=== PATIENT | male | born 1960 | race Caucasian/White ===

== ENCOUNTER → 2016-10-30 | Outpatient (CLI) | payer OTHER ==
[~2016-10-30] VITALS: Ht 177.8 cm; Wt 93.0 kg
[~2016-10-30] MED LIST: ASPI325T8 PO; CARV3.122 PO; CHOL10002 PO; CLOP75TA PO; LOSA100T6 PO; OMEG500C3 PO; PANT40TA5 PO; REGADENOSON 0.4 MG/5 ML DISP.SYRIN. IV ONE; SIMV20TA3 PO
--- NOTE | 2016-10-30 12:35 | RAD ---
APPROVED REPORT Test Type: Pharmacological Stress Nurse/Tech: Andreea Yun R.N. Test Indications: chest pain, CAD Cardiac History: Hypertension, CA's, 4 stents Medications: See Electronic Medical Record Medical History: See Electronic Medical Record Resting ECG: NSR Resting Heart Rate: 60 bpm Resting Blood Pressure: 111/68mmHg Pretest Chest Pain: No chest pain Nurse/Tech Notes S1S2, lungs sound clear Consent: The procedure was explained to the patient in lay terms. Informed consent was witnessed. Moody eout was entered into [facility]. History and Stress Test performed by Andreea Yun R.N. Pharm. Details Pharmacologic stress testing was performed using 0.4mg per 5ml of regadenoson given intravenously ove r 7-10 seconds. Stress Symptoms Dyspnea, Headache POST EXERCISE Reason for Termination: Infusion complete Max HR: 91 bpm Max Blood Pressure: 118/65mmHg Blood Pressure response to exercise: Normal blood pressure response during stress. Chest Pain: No. Arrhythmia: No. ST Change: No. INTERPRETATION Stress EKG Conclusion: The resting EKG shows a sinus rhythm with slight nonspecific ST-T wave changes . The stress EKG shows no significant changes from baseline. No EKG evidence of stress-induced ischemia. Imaging Protocol IMAGE PROTOCOL: Rest Tc-99m/stress Tc-99m 1 day Rest: Stress: Viability: Radiopharm.Tc99m IhzqywpcvMx60p Sestamibi Dose12.2mCi 33.6mCi Duration 15min. 10min. Img Date 10/30/2016 10/30/2016 Inj-Img Hoqm52fho. 60min. Rest Admin Site:IV - Left AntecubitalAdministrator:MARIBEL Ortiz Stress Admin Site: IV - Left AntecubitalAdministrator: MARIBEL Ortiz STRESS DATA End Diast. Vol.112.0mlAv. Heart Rate75.0bpm End Syst. Vol.31.0mlCO Index BSA0.0L/min Myocardial Cwjn338.0gEject. Wzrxahyf23.0% Stress Rates Pk. Fill Rate3.26EDV/secLVtime Pk. Fill 236.28msec Pk. Empty Rate3.49ESV/secLVtime Pk. Lgblr477.02msec 1/3 Pk. Fill0.58EDV/sec Stress Scores Regional WT1.00Summed WT8.00 Regional WM0.00Summed WM0.00 LV Perfusion The stress scans show a mild defect in the inferior lateral wall. The rest scans show a slight defect in the inferior wall. Nuclear imaging shows a largely reversible defect consistent with reversible ischemia in the inferior lateral wall. Wall Motion Left ventricular systolic function is normal with an ejection fraction of greater than 70%. LV Perf. Quant 17 Seg. SSS15.00 17 Seg. SRS16.00 17 Seg. SDS2.00 Stress Defect Extent (% LAD)15.60Rest Defect Extent (% LAD)25.60Rev. Defect Extent (% LAD)0.00 Stress Defect Extent (% LCX) 56.30Rest Defect Extent (% LCX)53.80Rev. Defect Extent (% LCX)2.50 Stress Defect Extent (% RCA)20.00Rest Defect Extent (% RCA)20.00Rev. Defect Extent (% RCA)5.60 Stress Defect Extent (% ROSI)28.50Rest Defect Extent (% ROSI)31.50Rev. Defect Extent (% ROSI)2.40 Conclusion 1. No EKG evidence of stress-induced ischemia. 2. Nuclear imaging shows an area of largely reversible ischemia in the inferior lateral wall. 3. Normal left ventricular systolic function with an ejection fraction of greater than 70%. 4. Moderate to moderately high risk Lexiscan nuclear stress test.
== END | disposition home or self-care (01) ==
LOC: NM 08:43
PROVIDERS: ATTEND Internal Medicine Cardiovascular Disease
DX: I25.118 Atherosclerotic heart disease of native coronary artery with other forms of angina pectoris (principal); R06.02 Shortness of breath; R53.83 Other fatigue; R07.9 Chest pain, unspecified
CPT/HCPCS: 78452; 93017; 96374; 96375; 96376; A9500; J2785

== ENCOUNTER 2016-12-03 11:01 | Outpatient (CLI) | payer OTHER ==
[~2016-12-03] VITALS: Ht 177.8 cm; Wt 93.9 kg
[2016-12-03] VITALS (12 sets, daily range): BP systolic 115–139; BP diastolic 77–87
[~2016-12-03 11:01] MED LIST changes: -REGADENOSON 0.4 MG/5 ML DISP.SYRIN. IV ONE
[2016-12-03] MEDS ORDERED: EZET10TA18 PO (11:17)
[2016-12-03 11:44] LABS: CALCIUM 8.6 mg/dL (8.5-10.1); CREATININE 0.8 mg/dL (0.7-1.3); GFR 99.3; POTASSIUM 4.4 mmol/L (3.5-5.1)
[2016-12-03 11:47] LABS: HEMOGLOBIN 15.7 g/dL (13.0-17.5); RED BLOOD COUNT 5.03 x10^6/uL (4.30-5.70); RED CELL DISTRIBUTION WIDTH 14.5 % (11.5-14.5); WHITE BLOOD COUNT 5.6 x10^3/uL (4.0-11.0)
[2016-12-03 12:00] LABS: PROTHROMBIN TIME PATIENT 12.3 SEC (11.7-14.0)
[2016-12-03] MEDS ORDERED: IOHEXOL 300 MG/ML 100ML VIAL. ONE (12:44)
[2016-12-03] MEDS ORDERED: LIDOCAINE 2% 20 ML VIAL. ONE (12:45)
[2016-12-03] MEDS ORDERED: MIDAZOLAM HCL/PF 2 MG/2 ML VIAL. ONE (12:56)
[2016-12-03] MEDS ORDERED: fentaNYL PF VIAL 100 MCG/2 ML VIAL ONE (12:56)
[2016-12-03] MEDS ORDERED: LIDOCAINE 2% 20 ML VIAL. IJ ONE (13:15)
[2016-12-03] MEDS ORDERED: IOHEXOL 300 MG/ML 100ML VIAL. IART ONE (13:15)
[2016-12-03] MEDS ORDERED: fentaNYL PF VIAL 100 MCG/2 ML VIAL IV ONE (13:15)
[2016-12-03] MEDS ORDERED: MIDAZOLAM HCL/PF 2 MG/2 ML VIAL. IV ONE (13:15)
--- NOTE | 2016-12-03 16:14 | CARD ---
APPROVED REPORT Procedure(s) performed: LEFT HEART CATHERIZATION SEDATION TIME:[address]: coronary artery disease, tobacco history() , previous PCI (The PCI date was ), hypertens ion, dyslipidemia. INDICATION The indication(s) include : positive stress test, unstable angina , chest pain. CASE TECHNIQUE The patient was brought electively into the cardiac catheterization lab. A timeout was performed conf irming the patient's name, date of , procedure, and site of procedure. All necessary parties wer e wearing the appropriate personal protective equipment and radiation monitoring devices. After expla ining the risks and benefits of the procedure, informed consent was obtained.(See nursing notes for m edications administered). The right groin was sterilely prepped and draped. The right femoral groin w as infiltrated with 2% Lidocaine subcutaneous anesthesia. During this case, Fluoroscopy and low osmol ar contrast were used for imaging. A sheath was inserted into the right femoral artery without diffic ulty. Coronary angiography was performed using coronary diagnostic catheters. The left coronary syste m was accessed and visualized with a Diagnostic catheter. The right coronary system was accessed and visualized with a Diagnostic catheter. The left ventricle was accessed and visualized with a Diagnost ic catheter. Left ventricular/Aortic Valve gradient assessed on pullback. Left ventriculogram was per formed in RAYMOND projection. Pre-demployment femoral angiogram was performed . Closure device was deploy ed with a Angioseal without any complications. The patient tolerated the procedure well and there wer e no complications associated with the procedure. Coronary Angiography The patient's coronary anatomy is co-dominant. The left main coronary artery is a large size vessel free of disease. The left main trifurcates to th e left anterior descending, circumflex, and ramus. The left anterior descending artery is a large size vessel with intimal irregularities and without si gnificant stenosis the stent is open without restenosis. The first diagonal branch is a small size ve ssel free of disease. The second diagonal branch is a small size vessel free of disease. The third di agonal branch is a small size vessel free of disease. The circumflex artery is a medium size vessel with intimal irregularities and without significant milton nosis. The stent to the mid segment stent is open. The first obtuse marginal branch is a medium size vessel free of disease. The second obtuse marginal branch is a medium size vessel free of disease. Th e third obtuse marginal branch is a small size vessel free of disease. The right coronary artery is a small size vessel free of disease. The right posterior descending luis enrique ry is a small size vessel free of disease. The right posterolateral branch is a small size vessel wit h mild proximal stenosis in the 40-50% range.. Left Ventriculography The left ventricle is mildly dilated in size with below normal contractility. The left ventricular ej ection fraction is estimated to be 40%%. The left ventricular end diastolic pressure is 18 mmHg. Ther e was no gradient across the aortic valve upon pullback. Conclusion This patient with a history of coronary artery disease has stents present in the LAD and the circumfl ex that are open and there is no significant restenosis. Mild disease of the RCA. I would recommend m edical treatment for the patient. 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 Recommendations Medical Therapy
== END 2016-12-03 16:38 | disposition home or self-care (01) ==
LOC: CCL 11:01
PROVIDERS: ATTEND Internal Medicine Cardiovascular Disease
DX: I25.10 Atherosclerotic heart disease of native coronary artery without angina pectoris (principal); I10 Essential (primary) hypertension; E78.5 Hyperlipidemia, unspecified; I20.0 Unstable angina; E78.00 Pure hypercholesterolemia, unspecified; F17.200 Nicotine dependence, unspecified, uncomplicated; Z79.01 Long term (current) use of anticoagulants; Z90.49 Acquired absence of other specified parts of digestive tract; Z72.0 Tobacco use
CPT/HCPCS: 36415; 80048; 85027; 85610; 85730; 93458; 99152; 99153; C1769; C1771; C1887; C1892; J1644; J2001; J2250; J3010; Q9967; G0269

== ENCOUNTER → 2017-06-11 | Outpatient (CLI) | payer OTHER ==
[2017-06-11 09:06] LABS: ADD MAN DIFF? NO
[2017-06-11 09:17] LABS: BASO # 0.1 x10^3/uL (0.0-0.2); BASO % 1 % (0-3); EOS # 0.3 x10^3/uL (0.0-0.7); EOS % 3 % (0-3); HEMATOCRIT 48.8 % (39.0-53.0); HEMOGLOBIN 16.4 g/dL (13.0-17.5); LYMPH # 1.3 x10^3/uL (1.0-4.8); LYMPH % 14 % (24-48); MEAN CORPUSCULAR HEMOGLOBIN 32 pg (25-35); MEAN CORPUSCULAR HGB CONC 34 g/dL (31-37); MEAN CORPUSCULAR VOLUME 94 fL (79-100); MONO # 0.6 x10^3/uL (0.0-1.1); MONO % 7 % (0-9); NEUT # 6.7 x10^3uL (1.8-7.7); NEUT % 75 % (31-73); PLATELET COUNT 278 x10^3/uL (140-400); RED BLOOD COUNT 5.19 x10^6/uL (4.30-5.70); RED CELL DISTRIBUTION WIDTH 14.5 % (11.5-14.5)
[2017-06-11 09:30] LABS: ALBUMIN/GLOBULIN RATIO 1.1 (1.0-1.7); ALK PHOS 83 U/L (46-116); ALT (SGPT) 10 U/L (16-63); ANION GAP 6 (6-14); AST (SGOT) 10 U/L (15-37); BLOOD UREA NITROGEN 19 mg/dL (8-26); BUN/CREATININE RATIO 16 (6-20); CALCIUM 9.1 mg/dL (8.5-10.1); CARBON DIOXIDE 31 mmol/L (21-32); CHLORIDE 104 mmol/L (98-107); CHOLESTEROL 167 mg/dL (0-200); CREATININE 1.2 mg/dL (0.7-1.3); GLUCOSE 100 mg/dL (70-99); HDLC 50 mg/dL (40-60); LDLC 100 mg/dL (0-100); NON-HDL CHOLESTEROL 117 mg/dL (0-129); POTASSIUM 4.6 mmol/L (3.5-5.1); SODIUM 141 mmol/L (136-145); TOTAL BILIRUBIN 0.4 mg/dL (0.2-1.0); TOTAL PROTEIN 7.5 g/dL (6.4-8.2); TRIGLYCERIDES 86 mg/dL (0-150); VLDLC 17 mg/dL (0-40)
[2017-06-11 09:32] LABS: CHOLESTEROL/HDL RATIO 3.3
[2017-06-11 09:43] LABS: FREE T4 0.99 ng/dL (0.76-1.46)
[2017-06-11 09:43] LABS: THYROID STIM HORMONE (TSH) 1.046 uIU/mL (0.358-3.74)
[2017-06-11 10:03] LABS: PROSTATE SPECIFIC ANTIGEN 1.28 ng/mL (0.00-4.00)
== END | disposition home or self-care (01) ==
LOC: LAB 08:56
DX: Z12.5 Encounter for screening for malignant neoplasm of prostate (principal); I25.10 Atherosclerotic heart disease of native coronary artery without angina pectoris; I10 Essential (primary) hypertension
CPT/HCPCS: 36415; 80053; 80061; 84439; 84443; 85025; G0103

== ENCOUNTER → 2017-07-07 | Outpatient (CLI) | payer OTHER ==
[2017-07-07] MEDS: REGADENOSON 0.4 MG/5 ML DISP.SYRIN. IV (09:11)
== END ==
LOC: NM 07:21
DX: I25.119 Atherosclerotic heart disease of native coronary artery with unspecified angina pectoris (principal); I10 Essential (primary) hypertension; F17.200 Nicotine dependence, unspecified, uncomplicated; Z79.01 Long term (current) use of anticoagulants
CPT/HCPCS: 78452; 93017; 96374; 96375; 96376; A9500; J2785

== ENCOUNTER → 2018-04-08 | Outpatient (CLI) | payer OTHER ==
[2016-12-03 16:32] VITALS: BP 125/77
[~2018-04-08] MED LIST changes: +CARV3.1210 PO; -CARV3.122 PO; +EZET10TA18 PO; -LOSA100T6 PO; +LOSA100T7 PO
[2018-04-08 09:50] LABS: BASO # 0.1 x10^3/uL (0.0-0.2); BASO % 1 % (0-3); EOS # 0.2 x10^3/uL (0.0-0.7); EOS % 3 % (0-3); HEMATOCRIT 46.8 % (39.0-53.0); LYMPH # 1.3 x10^3/uL (1.0-4.8); LYMPH % 21 % (24-48); MEAN CORPUSCULAR HEMOGLOBIN 32 pg (25-35); MEAN CORPUSCULAR HGB CONC 34 g/dL (31-37); MEAN CORPUSCULAR VOLUME 94 fL (79-100); MONO # 0.4 x10^3/uL (0.0-1.1); MONO % 7 % (0-9); NEUT % 67 % (31-73); PLATELET COUNT 236 x10^3/uL (140-400); WHITE BLOOD COUNT 5.9 x10^3/uL (4.0-11.0)
[2018-04-08 10:15] LABS: ALBUMIN 3.6 g/dL (3.4-5.0); ALBUMIN/GLOBULIN RATIO 1.1 (1.0-1.7); CALCIUM 8.8 mg/dL (8.5-10.1); GFR 76.2; POTASSIUM 4.4 mmol/L (3.5-5.1); TOTAL BILIRUBIN 0.3 mg/dL (0.2-1.0); TOTAL PROTEIN 6.8 g/dL (6.4-8.2)
[2018-04-08 10:22] LABS: CHOLESTEROL/HDL RATIO 3.6
[2018-04-08 20:12] LABS: HEMOGLOBIN A1C 5.7 % (4.8-5.6)
== END | disposition home or self-care (01) ==
LOC: LAB 09:24
PROVIDERS: ATTEND Internal Medicine Cardiovascular Disease
DX: E78.2 Mixed hyperlipidemia (principal); I42.9 Cardiomyopathy, unspecified; R53.83 Other fatigue
CPT/HCPCS: 80053; 80061; 83036; 85025

== ENCOUNTER 2018-06-09 09:15 | Outpatient (CLI) | payer OTHER ==
[2018-06-09] VITALS (14 sets, daily range): BP systolic 116–155; BP diastolic 67–91
[~2018-06-09] VITALS: Ht 175.3 cm; Wt 95.3 kg
[~2018-06-09 09:15] MED LIST changes: +LOSA100T14 PO; -LOSA100T7 PO; -PANT40TA5 PO; +PANT40TA77 PO
[2018-06-09] MEDS ORDERED: CARV25TA2 PO (09:32)
[2018-06-09 09:40] LABS: HEMATOCRIT 47.7 % (39.0-53.0); HEMOGLOBIN 16.1 g/dL (13.0-17.5); RED BLOOD COUNT 5.15 x10^6/uL (4.30-5.70); RED CELL DISTRIBUTION WIDTH 14.5 % (11.5-14.5); WHITE BLOOD COUNT 6.2 x10^3/uL (4.0-11.0)
[2018-06-09 09:51] LABS: PROTHROMBIN TIME PATIENT 12.9 SEC (11.7-14.0)
[2018-06-09 10:01] LABS: GFR 76.2; POTASSIUM 4.1 mmol/L (3.5-5.1)
[2018-06-09] MEDS ORDERED: LIDOCAINE 1% PF 2 ML VIAL. ONE (10:52)
[2018-06-09] MEDS ORDERED: IODIXANOL 320 MG/ML 100 ML VIAL. ONE (10:52)
[2018-06-09] MEDS ORDERED: HEPARIN for IV BOLUS 10,000 UNIT/10 ML VIAL. ONE (10:54)
[2018-06-09] MEDS ORDERED: MIDAZOLAM HCL/PF 2 MG/2 ML VIAL. ONE (10:54)
[2018-06-09] MEDS ORDERED: fentaNYL PF VIAL 100 MCG/2 ML VIAL ONE (10:54)
[2018-06-09] MEDS ORDERED: NITROGLYCERIN 200 MCG/2 ML SYRINGE FOR CATH/VASC LAB. ONE (10:54)
[2018-06-09] MEDS ORDERED: VERAPAMIL 5 MG/2 ML VIAL. ONE (10:54)
--- NOTE | 2018-06-09 11:14 | PDOC ---
MODERATE SEDATION ASSESSMENT RISKS/ALTERNATIVES Risks/Alternatives Risks and alternatives of this type of sedation and procedure discussed with: RISK/ALTERNATIVES: Patient H & P ON CHART H & P H & P on chart and reviewed for co-morbid conditions and appropriate labs. H&P ON CHART: Yes STATUS PREG STATUS ASSESSED: N/A MEDS/ALLERGIES REVIEWED Meds/Allergies Reviewed Medications and Allergies including time and route of recently administered narcotics and sedatives. MEDS/ALLERGIES REVIEWED: Yes ASA RATING ASA RATING: III AIRWAY ASSESSMENT Airway Assessment Airway patency, oral function limitations, presence of caps, crowns, dentures, partials, and ability to extend neck assessed. AIRWAY ASSESSMENT: Yes MALLAMPATI SCORE MALLAMPATI SCORE: II PRE-SEDATION ASSESSMENT PRE-SEDATION ASSESSMENT: Yes CHRIS RECINOS MD Jun 09, 2018 11:14
[2018-06-09] MEDS ORDERED: NITROGLYCERIN 200 MCG/2 ML SYRINGE FOR CATH/VASC LAB. IART ONE (11:45)
[2018-06-09] MEDS ORDERED: VERAPAMIL 5 MG/2 ML VIAL. IART ONE (11:45)
[2018-06-09] MEDS ORDERED: IODIXANOL 320 MG/ML 100 ML VIAL. IART ONE (11:45)
[2018-06-09] MEDS ORDERED: LIDOCAINE 1% PF 2 ML VIAL. INJ ONE (11:45)
[2018-06-09] MEDS ORDERED: HEPARIN for IV BOLUS 10,000 UNIT/10 ML VIAL. IART ONE (11:45)
[2018-06-09] MEDS ORDERED: fentaNYL PF VIAL 100 MCG/2 ML VIAL IV ONE (11:45)
[2018-06-09] MEDS ORDERED: MIDAZOLAM HCL/PF 2 MG/2 ML VIAL. IV ONE (11:45)
--- NOTE | 2018-06-09 14:11 | CARD ---
MR#: [id number] Date of Study: 06/09/2018 Ordering Physician: CHRIS CRAVEN, Referring Physician: CHRIS CRAVEN, Tech: Barbie Vera RTR APPROVED REPORT Technologist: Barbie Vera RTR Nurse: Laina Cordova R.N. Procedure(s) performed: Moderate Sedation time:31 MINUTES CSHA:4 [facility], Coronary angiography, Left ventriculography HISTORY The patient is a 58 year-old male with a history of : previous OH, previous CHF, coronary artery dise ase, tobacco history() , hypertension. INDICATION The indication(s) include : unstable angina . PROCEDURE NARRATIVE INFORMED CONSENT: After explaining the risks and benefits of the procedure and alternatives, informed consent was obtained. The patient was brought electively to the cardiac catheterization lab. A timeout was performed confi rming the patient's name, date of , procedure, and site of procedure. All necessary personnel w ere wearing the appropriate protective equipment and radiation monitor devices. (See nursing notes for medications administered). ACCESS: The right wrist was sterilely prepped and draped in the usual fashion. The right wrist was infiltrat ed with 1 mL of 2% lidocaine for subcutaneous anesthesia. A 6 Turkish Terumo glide sheath was inserte d into the right radial artery without difficulty. CORONARY ANGIOGRAPHY: Right and left coronary angiography was performed using a 6Fr TIG 4.0 catheter. Left ventricular en d diastolic pressure was obtained with a pigtail catheter and pullback was performed after left ventr iculography. All catheter exchanges and advancements were performed over a guidewire. CLOSURE: At case completion the right radial sheath was removed and a Terumo radial band was applied with 13 m l of air. COMPLICATIONS: The patient tolerated the procedure well and there were no immediate complications. FINDINGS: HEMODYNAMICS: LVEDP 16 mm Hg No gradient on LV to aortic pullback. AO: 150/80 LEFT VENTRICULOGRAM: EF 55% Anterobasal: Normal. Anterolateral: Normal Apical: Normal Diaphragmatic: Moderate to severely hypokinetic. Posterobasal: Normal CORONARY ANGIOGRAPHY: LM is a large caliber vessel with normal angiographic appearance. LAD is a moderate caliber vessel with a mid 70% ISR of the previously placed stent. D1 is a small caliber vessel with a mid 40% stenosis. LCx is a moderate caliber non-dominant vessel with a patent mid stent. OM1 is a moderate caliber vessel with normal angiographic appearance. LPL1 is a moderate caliber bifurcating vessel with mild luminal irregularities. RCA is a large caliber dominant vessel with a mid to distal 100% occlusion at the site of a previousl y placed stent. RPDA and RPL are moderate caliber vessels that fill via robust left to right collaterals. Conclusion 1. Normal LV systolic function. Ef 55% 2. 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 Continue aggressive medical therapy including asa, statin and imdur. Depending on revascularization plans, will determine need for continuation of Plavix. Signed by : Chris Craven, Electronically Approved : 06/09/2018 14:09:22
--- NOTE | 2018-06-09 16:49 | NUR ---
Discharge Note: ANA GUERRERO Discharge instructions and discharge home medications reviewed with Patient and a copy given. All questions have been answered and understanding verbalized. The following instructions and handouts were given: Moderate sedation and radial site care. Discontinued lines and drains: left forearm PIV D/C, dressing clean dry and intact. Patient discharged to home with significant other via private vehicle. Patient ate lunch and tolerated well with no difficulty. Dr. Che spoke with patient and family at bedside about open heart surgery/CABG and plans to proceed with surgery in a week.
[2018-06-10] MEDS ORDERED: FLAX10003 PO (11:45)
[2018-06-10] MEDS ORDERED: ISOS20TA2 PO (11:47)
[2018-06-20] MEDS ORDERED: ATOR40TA59 PO (15:24)
[2018-06-20] MEDS ORDERED: OXYC5TAB4 PO (15:24)
[2018-06-20] MEDS ORDERED: ASPI325T8 PO (15:24)
[2018-06-20] MEDS ORDERED: SENN-22 PO (15:24)
[2018-12-15] MEDS ORDERED: AMLO10TA8 PO (09:18)
[2018-12-15] MEDS ORDERED: ATOR40TA59 PO (09:18)
== END 2018-06-09 16:52 | disposition home or self-care (01) ==
LOC: CCL 09:15
PROVIDERS: ATTEND Internal Medicine Cardiovascular Disease
DX: I25.110 Atherosclerotic heart disease of native coronary artery with unstable angina pectoris (principal); I25.82 Chronic total occlusion of coronary artery; I25.2 Old myocardial infarction; I10 Essential (primary) hypertension; E78.5 Hyperlipidemia, unspecified; Z79.82 Long term (current) use of aspirin; Z79.899 Other long term (current) drug therapy; Z95.5 Presence of coronary angioplasty implant and graft; F17.210 Nicotine dependence, cigarettes, uncomplicated
CPT/HCPCS: 36415; 80048; 85027; 85610; 93458; 99152; 99153; C1769; C1892; J1644; J2250; J3010; J3490; Q9967

== ENCOUNTER → 2018-06-10 | Outpatient (CLI) | payer OTHER ==
[2018-06-09 16:00] VITALS: BP 138/84
[~2018-06-10] MED LIST changes: +AMLO10TA8 PO; +ATOR40TA59 PO; +CARV25TA2 PO; +FLAX10003 PO; +ISOS20TA2 PO; +OXYC5TAB4 PO; +SENN-22 PO
[2018-06-10 11:57] LABS: BASO # 0.1 x10^3/uL (0.0-0.2); BASO % 1 % (0-3); EOS # 0.1 x10^3/uL (0.0-0.7); EOS % 2 % (0-3); HEMATOCRIT 44.8 % (39.0-53.0); HEMOGLOBIN 14.9 g/dL (13.0-17.5); LYMPH # 1.4 x10^3/uL (1.0-4.8); LYMPH % 24 % (24-48); MEAN CORPUSCULAR HEMOGLOBIN 31 pg (25-35); MEAN CORPUSCULAR HGB CONC 33 g/dL (31-37); MEAN CORPUSCULAR VOLUME 93 fL (79-100); MONO # 0.5 x10^3/uL (0.0-1.1); MONO % 9 % (0-9); NEUT # 3.8 x10^3uL (1.8-7.7); NEUT % 64 % (31-73); PLATELET COUNT 208 x10^3/uL (140-400); RED BLOOD COUNT 4.83 x10^6/uL (4.30-5.70); RED CELL DISTRIBUTION WIDTH 14.5 % (11.5-14.5); WHITE BLOOD COUNT 5.9 x10^3/uL (4.0-11.0)
[2018-06-10 12:13] LABS: ALBUMIN 3.4 g/dL (3.4-5.0); CALCIUM 8.8 mg/dL (8.5-10.1); CREATININE 0.9 mg/dL (0.7-1.3); GFR 86.1; POTASSIUM 4.1 mmol/L (3.5-5.1); TOTAL BILIRUBIN 0.4 mg/dL (0.2-1.0); TOTAL PROTEIN 6.7 g/dL (6.4-8.2)
--- NOTE | 2018-06-10 13:59 | RAD ---
Two-view chest dated 06/10/2018. Comparison made to 05/10/2013. Clinical data indication: Preop testing for open heart procedure. History of hypertension. FINDINGS: PA and lateral views of the chest were obtained. Heart and mediastinal contours are stable. There are coarsened interstitial markings at both lung bases, unchanged. Mild hyperinflation with flattening of the hemidiaphragms. No consolidation or pleural effusion. No pneumothorax. IMPRESSION: 1. No acute radiographic abnormality. Stable findings compared to 05/10/2013. Electronically signed by: Guzman Jacinto MD (06/10/2018 1:54 PM) [id number]
[2018-06-10 20:12] LABS: HEMOGLOBIN A1C 5.7 % (4.8-5.6)
--- NOTE | 2018-06-14 17:25 | NUR ---
FAXED PRE OP LABS,MRSA,CXR REPORTS DONE 06/10/2018 TO OFFICE FOR REVIEW 06/13/2018 AT 1024. CLARIFIED TO REGARDING COREG AND ASA AND HE SAID DO NOT TAKE ON DAY OF SURGERY AND TO DO PTT BEFORE SURGERY 06/13/2018 AT 1215. CALLED PATIENT AND INFORMED OF NOT TO TAKE COREG AND ASA DAY OF SURGERY 06/13/2018 AT 1410 AND ALSO TO HAVE PTT DONE WHEN HE COMES FOR OTHER TESTS 06/14/2018 AND VERBALIZED UNDERSTANDING. FAXED CT OF CHEST, ECHO CAROTID DOPPLER, VEIN MAPPING REPORTS TO OFFICE AT 1705 06/14/2018 AND RECEIVED TRANSMITTAL CONFIRMATION.
== END | disposition home or self-care (01) ==
LOC: SURGPAT 11:25
PROVIDERS: ATTEND Thoracic Surgery (Cardiothoracic Vascular Surgery)
DX: Z01.818 Encounter for other preprocedural examination (principal); I25.10 Atherosclerotic heart disease of native coronary artery without angina pectoris; I10 Essential (primary) hypertension; Z79.2 Long term (current) use of antibiotics
CPT/HCPCS: 36415; 71046; 80053; 83036; 85025; 87641

== ENCOUNTER → 2018-06-14 | Outpatient (CLI) | payer OTHER ==
[2018-06-09 16:00] VITALS: BP 138/84
[~2018-06-14] MED LIST changes: -AMLO10TA8 PO; +PANT40TA5 PO; -PANT40TA77 PO
--- NOTE | 2018-06-14 11:00 | CARD ---
MR#: [id number] Date of Study: 06/14/2018 Ordering Physician: SIOMARA TRIVEDI, Referring Physician: SIOMARA TRIVEDI Tech: Jaye Villasenor RDCS APPROVED REPORT EXAM: Two-dimensional and M-mode echocardiogram with Doppler and color Doppler. Other Information Quality : Fair Rhythm : LBBB INDICATION Cardiac Disease: CAD PreOp CABG RISK FACTORS Smoking 2D DIMENSIONS RVDd1.8 (2.9-3.5cm)Left Atrium(2D)3.7 (1.6-4.0cm) IVSd1.2 (0.7-1.1cm)Aortic Root(2D)2.9 (2.0-3.7cm) LVDd5.6 (3.9-5.9cm)LVOT Diameter2.2 (1.8-2.4cm) PWd0.8 (0.7-1.1cm)LVDs4.9 (2.5-4.0cm) FS (%) 13.4 %SV43.6 ml LVEF(%)28.3 (>50%) Aortic Valve AoV Peak Tae.149.6cm/sAoV VTI26.0cm AO Peak GR.9.0mmHgLVOT Peak Tae.98.8cm/s AO Mean GR.4mmHgAVA (VMAX)2.47cm2 KELIN (VTI)2.80cm2 Mitral Valve MV E Wivfwess72.5cm/sMV DECEL AAXM728nw MV A Orgodvvs75.2cm/sE/A Ratio0.8 Pulmonary Vein S1 Esypjxfq53.6cm/sD2 Nnqudase44.4cm/s LEFT VENTRICLE The left ventricle is normal size. There is mild asymmetric septal hypertrophy. The Ejection Fraction is 45-50%. Akinetic base to mid inferior and posterior pérez. Transmitral Doppler flow pattern is Gr mitch I-abnormal relaxation pattern. RIGHT VENTRICLE The right ventricle is normal size. The right ventricular systolic function is normal. ATRIA The left atrium size is normal. The right atrium size is normal. The interatrial septum is intact wit h no evidence for an atrial septal defect or patent foramen ovale as noted on 2-D or Doppler imaging. AORTIC VALVE The aortic valve is calcified but opens well. Doppler and Color Flow revealed no significant aortic r egurgitation. There is no significant aortic valvular stenosis. MITRAL VALVE The mitral valve is calcified but opens well. Mitral annular calcification is mild. There is no evide nce of mitral valve prolapse. There is no mitral valve stenosis. Doppler and Color Flow revealed no m itral valve regurgitation noted. TRICUSPID VALVE The tricuspid valve is normal in structure and function. Doppler and Color Flow revealed trace tricus pid valve regurgitation. There is no tricuspid valve stenosis. PULMONIC VALVE The pulmonic valve is not well visualized. Doppler and Color Flow revealed no pulmonic valvular regur gitation. There is no pulmonic valvular stenosis. GREAT VESSELS The aortic root is normal in size. The ascending aorta is normal in size. The IVC is normal in size a nd collapses >50% with inspiration. PERICARDIAL EFFUSION There is no evidence of significant pericardial effusion. Critical Notification Critical Value: No <Conclusion> Akinetic base to mid inferior and posterior pérez. The Ejection Fraction is 45-50%. Transmitral Doppler flow pattern is Grade I-abnormal relaxation pattern. Trace tricuspid valve regurgitation. There is no evidence of significant pericardial effusion. Signed by : Dominic Blair, Electronically Approved : 06/14/2018 10:58:04
--- NOTE | 2018-06-14 11:31 | RAD ---
DOPPLER CAROTID BILAT Clinical Indication: PRE-OP OPEN HEART. Procedure: Pulsed wave and color-flow duplex imaging was utilized to evaluate the extracranial carotid arteries. Comparison: None. Findings: RIGHT SIDE: Mild atherosclerotic plaque on blake-scale images. Distal CCA peak systolic velocity 94 cm/sec. ICA peak systolic velocity 101 cm/sec. The right ICA/CCA ratio is 1.1. Flow within the right vertebral artery and right ECA is directed antegrade. Triphasic waveforms are seen in the subclavian artery. LEFT SIDE: Mild atherosclerotic plaque on blake-scale images. Distal CCA peak systolic velocity 64 cm/sec. ICA peak systolic velocity 82 cm/sec. The left ICA/CCA ratio is 1.3. Flow within the left vertebral artery and left ECA is directed antegrade. Monophasic waveforms seen in the subclavian artery. Carotid legend: CCA = common carotid artery ICA = internal carotid artery ECA = external carotid artery IMPRESSION: No hemodynamically significant stenosis in the carotids. Electronically signed by: Joel Montero DO (06/14/2018 11:27 AM) [id number]
--- NOTE | 2018-06-14 11:37 | RAD ---
PQRS Compliance statement: One or more of the following individualized dose reduction techniques were utilized for this examination: 1. Automated exposure control. 2. Adjustment of the mA and/or kV according to patient size. 3. Use of iterative reconstruction technique. Indication:CAD. PRE OP TECHNIQUE: CT chest without IV contrast with multiplanar reformats. COMPARISON: 01/18/2011 FINDINGS: Heart is normal in size. No pericardial or pleural effusion. Coronary artery calcifications. Clear neck base. No enlarged axillary or mediastinal adenopathy. Evaluation of hilar lymphadenopathy is limited due to lack of IV contrast. Central airways are patent. Mild emphysema. Stable 2 mm nodule in the right upper lobe (series 3 image 15). Otherwise, lungs are clear. Visualized sections through the liver, spleen, adrenals, kidneys, pancreas within normal limits. Diffuse colonic diverticulosis without diverticulitis. 3.0 cm well-circumscribed low attenuating lesion is seen in the inferior aspect of the spleen. No suspicious bony lesion. IMPRESSION: 1. Mild emphysema. No acute findings. 2. Indeterminate splenic lesion. Differential diagnoses complex cyst, hamartoma, hemangioma. Ultrasound may be obtained for further evaluation. Alternatively short-term follow-up with CT abdomen with IV contrast recommended. Electronically signed by: Joel Montero DO (06/14/2018 11:32 AM) [id number]
--- NOTE | 2018-06-14 14:05 | RAD ---
Examination: VEIN MAPPING LOWER EXT BILAT History: PRE-OP OPEN HEART Comparison/Correlation: None Findings: Duplex ultrasound examination of the right and left greater and lesser saphenous veins was performed. Grayscale imaging was performed. Right greater saphenous vein measures up to 0.3 cm at the proximal thigh level, 0.25 cm at the mid thigh level, 0.22 cm at the knee level, and ranges from 0.18 cm to 0.26 cm more distally. Right lesser saphenous vein ranges in diameter from 0.22 cm at the distal calf level to 0.33 cm proximally. The left greater saphenous vein has a diameter which ranges from 0.3 cm up to 0.4 cm at the thigh level. At the level of the knee, it has a diameter of up to 0.26 cm. At the mid calf and more distal level, diameter ranges from 0.2 7:00 PM up to 0.3 cm. The left lesser saphenous vein has a diameter which ranges from 0.19 cm up to 0.27 cm. Flow and normal phasicity identified involving the greater and lesser saphenous veins. Impression: No thrombus involving the saphenous veins. Diameters as described above. Electronically signed by: Red Lamar MD (06/14/2018 2:00 PM) [facility]
== END | disposition home or self-care (01) ==
LOC: ECHO 09:34
PROVIDERS: ATTEND Thoracic Surgery (Cardiothoracic Vascular Surgery)
DX: Z01.818 Encounter for other preprocedural examination (principal); I70.8 Atherosclerosis of other arteries; I25.10 Atherosclerotic heart disease of native coronary artery without angina pectoris; J43.9 Emphysema, unspecified; K57.30 Diverticulosis of large intestine without perforation or abscess without bleeding; D73.89 Other diseases of spleen; D18.09 Hemangioma of other sites; Q85.8 Other phakomatoses, not elsewhere classified; L72.3 Sebaceous cyst; F17.200 Nicotine dependence, unspecified, uncomplicated; I51.7 Cardiomegaly; R00.8 Other abnormalities of heart beat
CPT/HCPCS: 36415; 71250; 80053; 80061; 83036; 85025; 93306; 93880; 93970; G0103

== ENCOUNTER → 2018-06-15 | Outpatient (CLI) | payer OTHER ==
[2018-06-09 16:00] VITALS: BP 138/84
== END | disposition home or self-care (01) ==
LOC: LAB 09:04
PROVIDERS: ATTEND Thoracic Surgery (Cardiothoracic Vascular Surgery)
DX: Z01.818 Encounter for other preprocedural examination (principal); I25.10 Atherosclerotic heart disease of native coronary artery without angina pectoris; I10 Essential (primary) hypertension; E78.00 Pure hypercholesterolemia, unspecified; J44.9 Chronic obstructive pulmonary disease, unspecified; Z87.891 Personal history of nicotine dependence
CPT/HCPCS: 36415; 85730

== ENCOUNTER 2018-06-16 05:42 | Inpatient (IN) | payer OTHER ==
--- NOTE | 2018-06-15 17:48 | PDOC1 ---
History and Physical Date of Admission Date of Admission DATE: 06/15/18 TIME: 17:40 Identification/Chief Complaint Chief Complaint Chest pain Source Source: Chart review, Patient History of Present Illness History of Present Illness The patient is a 58-year-old male with a history of previous [place] with cardiac arrest, multiple PCI's, hypertension and hyperlipidemia who presented with chest pain which occurs once or twice a week on exertion. He also reports increasing shortness of breath. He denies palpitations, orthopnea, ankle swelling. He recently had an MPI which demonstrated inferior ischemia. His LV function is preserved. Coronary angiogram last week demonstrated a 70% in-stent LAD stenosis and an occluded mid RCA. The left circumflex stent is patent without critical lesions. He comes today for elective surgical coronary revascularization. Past Medical History Cardiovascular: CAD, HTN, DE, Hyperlipidemia Pulmonary: No pertinent hx GI: No pertinent hx Heme/Onc: No pertinent hx Hepatobiliary: No pertinent hx Psych: No pertinent hx Rheumatologic: No pertinent hx Infectious disease: No pertinent hx ENT: No pertinent hx Renal/: No pertinent hx Endocrine: No pertinent hx Dermatology: No pertinent hx Past Surgical History Past Surgical History: No pertinent history Family History Family History: Coronary Artery Disease Social History Smoke: <1 pack per day ALCOHOL: none Drugs: None Current Medications Current Medications Current Medications Cefazolin Sodium 1 gm/Sodium Chloride 500 ml @ 500 mls/hr 1X ONCE IRR ; Start 06/16/18 at 06:00; Stop 06/16/18 at 06:59 Potassium Chloride 70 meq/ Sodium Bicarbonate 12.5 meq/Lidocaine HCl 24 ml/ Parenteral Electrolytes 571.5 ml @ 571.5 mls/ hr 1X ONCE IRR ; Start 06/16/18 at 06:00; Stop 06/16/18 at 06:59 Potassium Chloride 15 meq/ Sodium Bicarbonate 12.5 meq/Parenteral Electrolytes 520 ml @ 520 mls/hr 1X ONCE IRR ; Start 06/16/18 at 06:00; Stop 06/16/18 at 06: 59 Heparin Sodium (Porcine) 43465 unit/Ringer's Solution 1,020 ml @ 1,020 mls/hr 1X ONCE IRR ; Start 06/16/18 at 06:00; Stop 06/16/18 at 06:59 Cefazolin Sodium/ Dextrose 50 ml @ 100 mls/hr 1X PREOP PRN IV PRIOR TO PROCEDURE; Start 06/16/18 at 06:00; Stop 06/16/18 at 18:00 Active Scripts Active Reported Isosorbide Mononitrate 20 Mg Tablet 30 Mg PO DAILY Flax Oil (Flaxseed Oil) 1,000 Mg Capsule 1,000 Mg PO DAILY Carvedilol 25 Mg Tablet 25 Mg PO BIDWMEALS Zetia (Ezetimibe) 10 Mg Tablet 10 Mg PO DAILY Vitamin D (Cholecalciferol (Vitamin D3)) 1,000 Unit Tablet 1,000 Unit PO DAILY Aspirin 325 Mg Tablet 325 Mg PO DAILY Losartan Potassium 100 Mg Tablet 100 Mg PO DAILY Pantoprazole Sodium 40 Mg Tablet.dr 40 Mg PO DAILY Clopidogrel (Clopidogrel Bisulfate) 75 Mg Tablet 75 Mg PO DAILY Allergies Allergies: Coded Allergies: No Known Drug Allergies (Unverified , 05/10/13) ROS General: No: Chills, Night Sweats, Fatigue, Malaise, Appetite PSYCHOLOGICAL ROS: No: Anxiety, Behavioral Disorder, Concentration difficultie , Decreased libido, Depression, Disorientation, Hallucinations, Hostility, Irritablity, Memory difficulties, Mood Swings, Obsessive thoughts, Physical abuse, Sexual abuse, Sleep disturbances, Suicidal ideation Eyes: No Blurry vision, No Decreased vision, No Double vision, No Dry eyes, No Excessive tearing, No Eye Pain, No Itchy Eyes, No Loss of vision, No Photophobia , No Scotomata, No Uses contacts, No Uses glasses HEENT: No: Heacaches, Visual Changes, Hearing change, Nasal congestion, Nasal discharge, Oral lesions, Sinus pain, Sore Throat, Epistaxis, Sneezing, Snoring, Tinnitus, Vertigo, Vocal changes ALLERGY AND IMMUNOLOGY: No: Hives, Insect Bite Sensitivity, Itchy/Watery Eyes, Nasal Congestion, Post Nasal Drip, Seasonal Allergies Hematological and Lymphatic: No: Bleeding Problems, Blood Clots, Blood Transfusions, Brusing, Night Sweats, Pallor, Swollen Lymph Nodes ENDOCRINE: No: Breast Changes, Galactorrhea, Hair Pattern Changes, Hot Flashes , Malaise/lethargy, Mood Swings, Palpitations, Polydipsia/polyuria, Skin Changes , Temperature Intolerance, Unexpected Weight Changes Respiratory: YES: Shortness of breath; No: Cough, Hemoptysis, Orthopnea, Pleuritic Pain, SOB with excertion, Sputum Changes, Stridor, Tachypnea, Wheezing Cardiovascular: yes Chest Pain; No Palpitations, No Orthopnea, No Paroxysmal Noc. Dyspnea, No Edema, No Lt Headedness Gastrointestinal: No Nausea, No Vomiting, No Abdominal Pain, No Diarrhea, No Constipation, No Melena, No Hematochezia Genitourinary: No Dysuria, No Frequency, No Incontinence, No Hematuria, No Retention, No Discharge, No Urgency, No Pain, No Flank Pain Musculoskeletal: No Gait Disturbance, No Joint Pain, No Joint Stiffness, No Joint Swelling, No Muscle Pain, No Muscular Weakness, No Pain In:, No Swelling In: Neurological: No Behavorial Changes, No Bowel/Bladder ControlChng, No Confusion , No Dizziness, No Gait Disturbance, No Headaches, No Impaired Coord/balance, No Memory Loss, No Numbness/Tingling, No Seizures, No Speech Problems, No Tremors, No Visual Changes, No Weakness Skin: No Dry Skin, No Eczema, No Hair Changes, No Lumps, No Mole Changes, No Mottling, No Nail Changes, No Pruritus, No Rash, No Skin Lesion Changes, No Acne Physical Exam General: Alert, Oriented X3, No acute distress HEENT: Atraumatic, PERRLA, EOMI Lungs: Clear to auscultation, Normal air movement Heart: S1S2, RRR, no thrills, no rubs, no gallops, no murmurs Abdomen: Normal bowel sounds, Soft, No tenderness, No hepatosplenomegaly Rectal Exam: deferred Extremities: No edema Skin: No significant lesion Neuro: Normal gait, Normal speech, Strength at 5/5 X4 ext, Normal tone, Sensation intact, Cranial nerves 3-12 NL, Reflexes 2+ Psych/Mental Status: Mental status NL Vitals Vitals Vital Signs Date Time Temp Pulse Resp B/P (MAP) Pulse Ox O2 Delivery O2 Flow Rate FiO2 06/10/18 11:48 97.1 58 18 96 97.1 Images Images CORONARY ANGIOGRAPHY: Right and left coronary angiography was performed using a 6Fr TIG 4.0 catheter. Left ventricular end diastolic pressure was obtained with a pigtail catheter and pullback was performed after left ventriculography. All catheter exchanges and advancements were performed over a guidewire. CLOSURE: At case completion the right radial sheath was removed and a Terumo radial band was applied with 13 ml of air. COMPLICATIONS: The patient tolerated the procedure well and there were no immediate complications. FINDINGS: HEMODYNAMICS: LVEDP 16 mm Hg No gradient on LV to aortic pullback. AO: 150/80 LEFT VENTRICULOGRAM: EF 55% Anterobasal: Normal. Anterolateral: Normal Apical: Normal Diaphragmatic: Moderate to severely hypokinetic. Posterobasal: Normal CORONARY ANGIOGRAPHY: LM is a large caliber vessel with normal angiographic appearance. LAD is a moderate caliber vessel with a mid 70% ISR of the previously placed stent. D1 is a small caliber vessel with a mid 40% stenosis. LCx is a moderate caliber non-dominant vessel with a patent mid stent. OM1 is a moderate caliber vessel with normal angiographic appearance. LPL1 is a moderate caliber bifurcating vessel with mild luminal irregularities. RCA is a large caliber dominant vessel with a mid to distal 100% occlusion at the site of a previously placed stent. RPDA and RPL are moderate caliber vessels that fill via robust left to right collaterals. VTE Prophylaxis Ordered VTE Prophylaxis Devices: Yes VTE Pharmacological Prophylaxi: Contraindicated Assessment/Plan Assessment/Plan 58-year-old male with a history of previous DE with cardiac arrest, multiple PCI 's, hypertension and hyperlipidemia who presents with stable angina and increasing shortness of breath. He denies heart failure symptoms. He recently had an MPI which demonstrated inferior ischemia. His LV function is preserved. Coronary angiogram last week demonstrated a 70% in-stent LAD stenosis and an occluded mid RCA. The left circumflex stent is patent without critical lesions. The risks of CABG, which include but are not limited to mortality 1-2%, stroke 1 -2%, renal failure requiring dialysis 1-2%, ventilator dependence 2-3%, chest infection 5%, wound infection 5%, mediastinal reexploration for hemorrhage 5%, postoperative arrhythmias 20%, were explained to the patient who agrees to proceed. His RCA is chronically occluded after reviewing previous left heart cath's, he appears to have a moderate size RPDA and RPL. He should be able to bypass either of these vessels. Carotid duplex, noncontrast CT of chest and bilateral lower extremity vein mapping without significant pathologic findings. 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 This is known from his previous MPI and does not appear to be viable. His ejection fraction on echo was 45-50%. There is no significant valvular disease. He has been off Plavix for 1 week. Plan for CABG �2 (PETER to LAD, SVG to RPDA) SIOMARA TRIVEDI MD Jun 15, 2018 17:48
[~2018-06-16] VITALS: Ht 175.3 cm; Wt 93.4 kg
[2018-06-16] VITALS (12 sets, daily range): BP systolic 116–164; BP diastolic 54–73
[~2018-06-16 05:42] MED LIST changes: +AMINOCAPROIC ACID 5,000 MG/20 ML VIAL. IV ONE; -ATOR40TA59 PO; +ETOMIDATE 20 MG/10 ML VIAL. IV ONE; +HEPARIN 30,000 UNIT/30 ML VIAL. ONE; +HEPARIN for IV BOLUS 10,000 UNIT/10 ML VIAL. ONE; +ISOFLURANE > 120 MINUTES. IH ONE; +LIDOCAINE 2% PF 5 ML VIAL. ONE; +MIDAZOLAM HCL/PF 2 MG/2 ML VIAL. ONE; -OXYC5TAB4 PO; -PANT40TA5 PO; +PANT40TA77 PO; +PHENYLEPHRINE 10 MG/ML VIAL. ONE; +ROCURONIUM 100 MG/10 ML VIAL. ONE; -SENN-22 PO; +SUFentanil 250 MCG/5 ML AMPUL. ONE
[2018-06-16] MEDS ORDERED: HEPARIN 20,000 UNIT in IV RINGERS,LACTATED 1000ML 1,000 ML IRR ONE (06:00)
[2018-06-16] MEDS ORDERED: POTASSIUM CHLORIDE 70 MEQ, SODIUM BICARBONATE VIAL 12.5 MEQ, LIDOCAINE 2% 24 ML in IV E... IRR ONE (06:00)
[2018-06-16] MEDS ORDERED: POTASSIUM CHLORIDE 15 MEQ, SODIUM BICARBONATE VIAL 12.5 MEQ in IV ELECTROLYTE-S (PH 7.4... IRR ONE (06:00)
[2018-06-16] MEDS ORDERED: ceFAZolin 2GM PREMIX 2 GM/50 ML BAG IV ONE (06:30)
[2018-06-16] MEDS ORDERED: LIDOCAINE 2% PF 2ML VIAL. ONE (06:34)
[2018-06-16] MEDS ORDERED: MORPHINE SULFATE 4 MG/ML VIAL. IV PRN (07:00)
[2018-06-16] MEDS ORDERED: fentaNYL PF VIAL 100 MCG/2 ML VIAL IV PRN ×2 (07:00)
[2018-06-16] MEDS ORDERED: IV RINGERS,LACTATED 1000ML 1,000 ML IV SCH (07:00)
[2018-06-16] MEDS ORDERED: PROCHLORPERAZINE 10 MG/2 ML VIAL. IV PRN ×2 (07:00→12:45)
[2018-06-16] MEDS ORDERED: ONDANSETRON PF 4 MG/2 ML VIAL. IV PRN ×2 (07:00→12:45)
[2018-06-16] MEDS ORDERED: HYDROmorphone 2 MG/ML VIAL IV PRN (07:00)
[2018-06-16] MEDS ORDERED: LIDOCAINE 1% PF 2 ML VIAL. ID PRN (07:00)
[2018-06-16] MEDS ORDERED: SURGICEL HEMOSTAT 4X8 EACH. ONE (07:11)
[2018-06-16] MEDS ORDERED: PAPAVERINE 60 MG/2 ML VIAL FOR OR ONLY. ONE (07:11)
[2018-06-16] MEDS ORDERED: VANCOMYCIN 10GM VIAL for OR. ONE (07:11)
[2018-06-16] MEDS ORDERED: ASPIRIN RECTAL 300 MG SUPP. ONE (07:11)
[2018-06-16] MEDS ORDERED: 0.9 % SODIUM CHLORIDE 20 ML VIAL. IJ ONE ×3 (07:53→07:54)
[2018-06-16] MEDS ORDERED: MIDAZOLAM HCL/PF 5 MG/5 ML VIAL. ONE (08:30)
[2018-06-16] MEDS ORDERED: ROCURONIUM 100 MG/10 ML VIAL. ONE (08:33)
[2018-06-16] MEDS ORDERED: PROTAMINE 250 MG/25 ML VIAL IV ONE ×2 (10:52→11:23)
[2018-06-16] MEDS ORDERED: MIDAZOLAM HCL/PF 2 MG/2 ML VIAL. ONE (11:01)
[2018-06-16] MEDS ORDERED: ceFAZolin SODIUM 1 GM VIAL ONE ×2 (11:35)
[2018-06-16] MEDS ORDERED: MANNITOL 25% 12.5 G/50 ML VIAL FOR OR. ONE (11:49)
[2018-06-16] MEDS ORDERED: ALBUMIN HUMAN 25% 100 ML IV ONE (11:49)
[2018-06-16] MEDS ORDERED: LIDOCAINE 2% PF 5 ML VIAL. ONE (11:49)
[2018-06-16] MEDS ORDERED: ALBUMIN HUMAN 5% 500 ML IV ONE (11:49)
[2018-06-16] MEDS ORDERED: MAGNESIUM SULFATE 5 GM/10 ML VIAL. ONE (11:49)
[2018-06-16] MEDS ORDERED: HEPARIN 30,000 UNIT/30 ML VIAL. ONE (11:49)
[2018-06-16] MEDS ORDERED: CALCIUM CHLORIDE 1,000 MG/10 ML DISP.SYRIN ONE (11:49)
[2018-06-16 11:53] LABS: HEMATOCRIT 34.8 % (39.0-53.0); HEMOGLOBIN 11.5 g/dL (13.0-17.5); WHITE BLOOD COUNT 7.8 x10^3/uL (4.0-11.0)
[2018-06-16 12:00] LABS: PROTHROMBIN TIME PATIENT 18.1 SEC (11.7-14.0)
--- NOTE | 2018-06-16 12:32 | PDOC4 ---
Operative Note Operative Note Date Jun 16, 2018 Preoperative diagnosis Coronary artery disease Unstable angina Ischemic cardiomyopathy Hypertension Hyperlipidemia Postoperative diagnosis Coronary artery disease Unstable angina Ischemic cardiomyopathy Hypertension Hyperlipidemia Procedure performed CABG x 2 (PETER to LAD, SVG to RPDA) Left endoscopic greater saphenous vein harvest Surgeon Siomara Trivedi MD FACS [employer] Maker FELTON Ramirez Anesthesiologist Dr Novak Anesthesia type General Blood loss Cellasver IV fluids Crystalloid: 1700 mls Albumin: 500 mls Cellsaver: 500 mls Urine output 1400 mls Specimens obtained None Findings Small 1,5mm RPDA target 2mm LAD target Modest size PETER but with good flow Good quality and caliber saphenous vein conduit CPB time: 63 min x-clamp time: 50 min Complications None Indication The patient is a 58-year-old male with a history of previous [place] with cardiac arrest, multiple PCI's, hypertension and hyperlipidemia who presented with chest pain which occurs once or twice a week on exertion. He also reports increasing shortness of breath. He denies palpitations, orthopnea, ankle swelling. He recently had an MPI which demonstrated inferior ischemia. His LV function is preserved. Coronary angiogram last week demonstrated a 70% in-stent LAD stenosis and an occluded mid RCA. The left circumflex stent is patent without critical lesions. He comes today for elective surgical coronary revascularization. Operation After appropriate identification, the patient was brought to the operating room and placed supine on the operating table. Anesthesia was induced and the airway was secured with an endotracheal tube. A right IJ [place]-Han catheter was placed. A left radial arterial line was also inserted. Antibiotics were delivered and the patient was preped and draped in the usual standard surgical sterile fashion. A timeout was then performed. A median sternotomy was performed and the left internal mammary artery was harvested, which was of modest size but good flow. Simultaneously the left greater saphenous vein was harvested endoscopically, which was of good quality and caliber. The pericardium was incised. The patient was heparinized. Cardiopulmonary bypass was established through the ascending aorta and the right atrium. A bifurcating antegrade cardioplegia and root vent needle was placed in the ascending aorta. The patient was cooled to 34�. Arrest was achieved with induction antegrade cold blood cardioplegia. The cross-clamp was applied and diastolic arrest was achieved. Intermittent dosages of antegrade cardioplegia was given every 20 minutes. Grafts: Saphenous vein graft to right posterior descending coronary artery, end to side anastomosis with 7-0 Prolene. 1.5 mm vessel. Left internal mammary artery to left anterior descending coronary artery, end to side anastomosis with 7-0 Prolene. 2 mm vessel. The proximal anastomosis was performed using a 5-0 Prolene running suture. The cross-clamp was removed. The heart was allowed to rewarm and reperfuse. The grafts were de-aired. The patient resumed normal sinus rhythm and was from cardiopulmonary bypass without inotropic support. All cannulae were removed. Heparin was reversed with protamine. Atrial and ventricular pacing wires were placed. Hemostasis was confirmed. An angled 32 [place] chest tube was placed in the left pleural space, a 32Fr angled in the posterior pericardium and a 32 straight in the anterior pericardium. The sternotomy was closed with seven stainless steel wires. The incision was closed with a layer of 0 Vicryl, followed by 2-0 Vicryl and then 4-0 Monocryl for the epidermis. Sterile dressings were applied. The total cardiopulmonary bypass time was 63 minutes and the cross-clamp time was 50 minutes. The instrument, sponge and needle counts were correct. The patient was then transferred to the ICU in critical condition. SIOMARA TRIVEDI MD Jun 16, 2018 12:32
--- NOTE | 2018-06-16 12:32 | PDOC ---
BRIEF OPERATIVE NOTE Date: Jun 16, 2018 Pre-Op Diagnosis Coronary artery disease Unstable angina Ischemic cardiomyopathy Hypertension Hyperlipidemia Post-Op Diagnosis Coronary artery disease Unstable angina Ischemic cardiomyopathy Hypertension Hyperlipidemia Procedure Performed CABG x 2 (PETER to LAD, SVG to RPDA) Left endoscopic greater saphenous vein harvest Surgeon Siomara Trivedi MD FACS [place] Cut[employer] Machine Operator FELTON Ramirez Anesthesiologist Dr Novak Anesthesia Type: General Blood Loss Cellasver IV Fluid Crystalloid: 1700 mls Albumin: 500 mls Cellsaver: 500 mls Urine Output 1400 mls Specimens Obtained None Findings Small 1,5mm RPDA target 2mm LAD target Modest size PETER but with good flow Good quality and caliber saphenous vein conduit CPB time: 63 min x-clamp time: 50 min Complications None SIOMARA TRIVEDI MD Jun 16, 2018 12:32
[2018-06-16] MEDS ORDERED: NITROGLYCERIN PREMIX 250 ML IV ONE (12:35)
[2018-06-16] MEDS ORDERED: MEPERIDINE PF 25 MG/ML VIAL. IV PRN (12:45)
[2018-06-16] MEDS ORDERED: 0.9 % SODIUM CHLORIDE 10 ML DISP.SYRIN. IV PRN (12:45)
[2018-06-16] MEDS ORDERED: PHENYLEPHRINE INJ 20 MG in IV NORMAL SALINE 250ML 250 ML IV PRN (12:45)
[2018-06-16] MEDS ORDERED: MAGNESIUM SULFATE 1GM 100 ML IV PRN (12:45)
[2018-06-16] MEDS ORDERED: BISACODYL 10 MG SUPP.RECT. PR PRN (12:45)
[2018-06-16] MEDS ORDERED: AMIODARONE 150 MG in IV DEXTROSE 5% 100ML 100 ML IV PRN (12:45)
[2018-06-16] MEDS ORDERED: DEXTROSE 50% 25 GM / 50ML DISP.SYRIN. IV PRN (12:45)
[2018-06-16] MEDS ORDERED: AMIODARONE 150 MG in IV DEXTROSE 5% 100ML 100 ML IV ONE ×4 (12:45)
[2018-06-16] MEDS ORDERED: ALBUTEROL SULFATE 2.5 MG/3 ML NEBU. NEB PRN (12:45)
[2018-06-16] MEDS ORDERED: ACETAMINOPHEN 650 MG SUPP.RECT. PR PRN (12:45)
[2018-06-16] MEDS ORDERED: INSULIN REGULAR VIAL 150 UNIT in 0.9 % SODIUM CHLORIDE 150ML 150 ML IV PRN (12:45)
[2018-06-16] MEDS ORDERED: PROPOFOL 100 ML IV PRN (12:45)
[2018-06-16] MEDS ORDERED: NITROGLYCERIN PREMIX 250 ML IV PRN (12:45)
[2018-06-16] MEDS ORDERED: METOCLOPRAMIDE HCL 10 MG/2 ML VIAL. IV PRN (12:45)
[2018-06-16] MEDS ORDERED: KCL PER PROTOCOL MC PRN (12:45)
[2018-06-16] MEDS ORDERED: AMIODARONE 900 MG in IV DEXTROSE 5% 500 ML IV PRN ×4 (12:45)
--- NOTE | 2018-06-16 13:08 | RAD ---
Exam performed: Single view chest HISTORY: Postop open heart surgery. DATE OF SERVICE: 06/16/2018. COMPARISON: 2 views chest from 06/10/2018. FINDINGS: There has been interval median sternotomy and CABG. Endotracheal tube terminates in the midtrachea. There is a [place]-Han catheter terminating in the expected location of the main pulmonary artery. There is a feeding tube, mediastinal drain and chest tube in place. The lungs are clear. No pleural effusion or pneumothorax seen. IMPRESSION: Status post median sternotomy and CABG with support lines and tubes in satisfactory position. Electronically signed by: Rosa Mccord MD (06/16/2018 1:03 PM) [facility]
[2018-06-16] MEDS: IV RINGERS,LACTATED 1000ML 1,000 ML IV SCH (13:09)
[2018-06-16] MEDS: niCARdipine 50 MG in IV NORMAL SALINE 250ML 250 ML IV PRN (13:10)
[2018-06-16 13:13] LABS: ART BE ISTAT 1 mmol/L (0-3); ART GLUC ISTAT 102 mg/dL (70-99); ART HCO3 ISTAT 26 mmol/L (21-28); ART HCT ISTAT 36 % (37-52); ART HGB ISTAT 12.2 g/dL (14-18); ART ION CA ISTAT 1.06 mmol/L (1.13-1.32); ART K ISTAT 5.2 mmol/L (3.5-5.0); ART NA ISTAT 140 mmol/L (135-145); ART PCO2 ISTAT 40 mmHg (35-45); ART PH ISTAT 7.42 (7.35-7.45); ART PO2 ISTAT 285 mmHg (75-100); ART SAT O2 SAT 100 % (95-99); ART TCO2 ISTAT 27 mmol/L (21-32)
[2018-06-16 13:13] LABS: ART BE ISTAT 0 mmol/L (0-3); ART GLUC ISTAT 76 mg/dL (70-99); ART HCO3 ISTAT 26 mmol/L (21-28); ART HCT ISTAT 35 % (37-52); ART HGB ISTAT 11.9 g/dL (14-18); ART ION CA ISTAT 1.53 mmol/L (1.13-1.32); ART K ISTAT 4.1 mmol/L (3.5-5.0); ART NA ISTAT 143 mmol/L (135-145); ART PCO2 ISTAT 48 mmHg (35-45); ART PH ISTAT 7.34 (7.35-7.45); ART PO2 ISTAT 458 mmHg (75-100); ART SAT O2 SAT 100 % (95-99); ART TCO2 ISTAT 27 mmol/L (21-32)
[2018-06-16 13:13] LABS: ART BE ISTAT 0 mmol/L (0-3); ART GLUC ISTAT 105 mg/dL (70-99); ART HCO3 ISTAT 26 mmol/L (21-28); ART HCT ISTAT 36 % (37-52); ART HGB ISTAT 12.2 g/dL (14-18); ART ION CA ISTAT 1.05 mmol/L (1.13-1.32); ART K ISTAT 5.2 mmol/L (3.5-5.0); ART NA ISTAT 140 mmol/L (135-145); ART PCO2 ISTAT 44 mmHg (35-45); ART PH ISTAT 7.37 (7.35-7.45); ART PO2 ISTAT 327 mmHg (75-100); ART SAT O2 SAT 100 % (95-99); ART TCO2 ISTAT 27 mmol/L (21-32)
[2018-06-16 13:13] LABS: ART BE ISTAT 5 mmol/L (0-3); ART GLUC ISTAT 94 mg/dL (70-99); ART HCO3 ISTAT 30 mmol/L (21-28); ART HCT ISTAT 45 % (37-52); ART HGB ISTAT 15.3 g/dL (14-18); ART ION CA ISTAT 1.18 mmol/L (1.13-1.32); ART K ISTAT 4.1 mmol/L (3.5-5.0); ART NA ISTAT 140 mmol/L (135-145); ART PCO2 ISTAT 52 mmHg (35-45); ART PH ISTAT 7.37 (7.35-7.45); ART PO2 ISTAT 502 mmHg (75-100); ART SAT O2 SAT 100 % (95-99); ART TCO2 ISTAT 32 mmol/L (21-32)
[2018-06-16 13:13] LABS: ART BE ISTAT 4 mmol/L (0-3); ART GLUC ISTAT 108 mg/dL (70-99); ART HCO3 ISTAT 30 mmol/L (21-28); ART HCT ISTAT 43 % (37-52); ART HGB ISTAT 14.6 g/dL (14-18); ART ION CA ISTAT 1.13 mmol/L (1.13-1.32); ART K ISTAT 4.3 mmol/L (3.5-5.0); ART NA ISTAT 140 mmol/L (135-145); ART PCO2 ISTAT 51 mmHg (35-45); ART PH ISTAT 7.37 (7.35-7.45); ART PO2 ISTAT 520 mmHg (75-100); ART SAT O2 SAT 100 % (95-99); ART TCO2 ISTAT 31 mmol/L (21-32)
[2018-06-16 13:13] LABS: ART BE ISTAT 2 mmol/L (0-3); ART GLUC ISTAT 88 mg/dL (70-99); ART HCO3 ISTAT 27 mmol/L (21-28); ART HCT ISTAT 33 % (37-52); ART HGB ISTAT 11.2 g/dL (14-18); ART ION CA ISTAT 1.81 mmol/L (1.13-1.32); ART K ISTAT 4.6 mmol/L (3.5-5.0); ART NA ISTAT 140 mmol/L (135-145); ART PCO2 ISTAT 45 mmHg (35-45); ART PH ISTAT 7.38 (7.35-7.45); ART PO2 ISTAT 401 mmHg (75-100); ART SAT O2 SAT 100 % (95-99); ART TCO2 ISTAT 28 mmol/L (21-32)
[2018-06-16 13:25] LABS: BASE EXCESS COOX -3 mmol/L (-3-3); HCO3 COOX 22 mmol/L (21-28); METHEMOGLOBIN 0.4 % (0.0-1.9); PCO2 COOX 40 mmHg (35-46); PO2 COOX 501 mmHg (65-108); SAT O2 COOX 99 % (92-99)
[2018-06-16 13:27] LABS: CORRECTED PCO2 COOX 39 mmHg; CORRECTED PH COOX 7.37; CORRECTED PO2 COOX 495 mmHg
[2018-06-16 13:31] LABS: HEMATOCRIT 39.1 % (39.0-53.0); RED BLOOD COUNT 4.21 x10^6/uL (4.30-5.70); RED CELL DISTRIBUTION WIDTH 14.6 % (11.5-14.5); WHITE BLOOD COUNT 7.7 x10^3/uL (4.0-11.0)
[2018-06-16] MEDS ORDERED: PROPOFOL 20 ML IV ONE (13:31)
[2018-06-16 13:43] LABS: CALCIUM 9.9 mg/dL (8.5-10.1); CREATININE 0.8 mg/dL (0.7-1.3); GFR 98.6; POTASSIUM 4.1 mmol/L (3.5-5.1)
[2018-06-16 13:44] LABS: MAGNESIUM 2.3 mg/dL (1.8-2.4)
--- NOTE | 2018-06-16 14:09 | EKG ---
[facility] [address] [place] [address] Test Date: 2018-06-16 Test Time: 13:57:23 Pat Name: ANA GUERRERO Department: Patient ID: [facility]-[id number] Room: 108 1 Gender: M Stummel Selector: [facility] : 1960 Requested By: SIOMARA TRIVEDI Order Number: [id number] Reading MD: Vinnie Craven MD Measurements Intervals [place] Rate: 69 P: 90 MT: 172 QRS: 88 QRSD: 96 T: 66 QT: 372 QTc: 400 Interpretive Statements SINUS RHYTHM Electronically Signed On 06-23-2018 8:54:50 [employer]UCTURAL [employer]OP HELPER by Vinnie Craven MD
[2018-06-16] MEDS: ALBUMIN HUMAN 5% 250 ML IV PRN ×2 (14:10→14:45)
[2018-06-16] MEDS: POTASSIUM CHL 20MEQ PREMIX 50 ML IV SCH ×2 (14:11→14:59)
[2018-06-16] MEDS: MORPHINE SULFATE 4 MG/ML VIAL. IV PRN ×5 (15:14→22:11)
--- NOTE | 2018-06-16 16:00 | NUR ---
pt completed weaning trial on cpap. abg's called to dr garcia. orders received. pt placed back on original vent settings for 1 hour then start cpap trial and abg in 20 min.
[2018-06-16 16:01] LABS: BASE EXCESS ABG -6 mmol/L (-3-3); HCO3 ABG 22 mmol/L (21-28); PCO2 ABG 57 mmHg (35-46); PO2 ABG 92 mmHg (65-108); SAT O2 ABG 95 % (92-99)
[2018-06-16 16:05] LABS: FIO2 ABG 40
--- NOTE | 2018-06-16 17:25 | NUR ---
pt extubated to 4l nc. pt tolerated well. see hourly documentation on icu flowsheet paper sheet.
[2018-06-16 17:40] LABS: HEMATOCRIT 40.9 % (39.0-53.0); HEMOGLOBIN 13.3 g/dL (13.0-17.5); RED BLOOD COUNT 4.36 x10^6/uL (4.30-5.70); RED CELL DISTRIBUTION WIDTH 14.7 % (11.5-14.5)
[2018-06-16] MEDS: oxyCODONE IR 5 MG TABLET PO PRN (20:28)
[2018-06-16] MEDS: ACETAMINOPHEN 325 MG TABLET. PO PRN (20:29)
[2018-06-16] MEDS: SENNOSIDES/DOCUSATE 8.6/50MG TABLET. PO SCH (21:15)
[2018-06-16] MEDS: FAMOTIDINE 20 MG/2 ML VIAL IVP SCH (21:23)
--- NOTE | 2018-06-16 23:59 | NUR ---
After explanation to patient, SWAN-YAHAIRA catheter removed without difficult. Patient has Arterial line for BP monitoring and lab draw; BP will now be documented under Vital signs intervention hourly and only every 4HRS under Arterial line intervention to avoid double charting. Addendum: 06/17/18 at 0102 by ANDRIA BOURNE RN Amended: Links added.
[2018-06-17] VITALS (29 sets, daily range): BP systolic 92–142; BP diastolic 47–82
[2018-06-17] MEDS: KETOROLAC 15 MG/ML VIAL. IV PRN ×2 (00:05→08:14)
[2018-06-17] MEDS: oxyCODONE IR 5 MG TABLET PO PRN ×6 (00:12→21:11)
[2018-06-17] MEDS: niCARdipine 50 MG in IV NORMAL SALINE 250ML 250 ML IV PRN (02:31)
[2018-06-17] MEDS: MORPHINE SULFATE 4 MG/ML VIAL. IV PRN ×2 (02:33→19:42)
--- NOTE | 2018-06-17 05:45 | NUR ---
After explanation to patient of plan, at 0540 Left Arterial line removed with catheter intact--pressure held for 5 minutes until return of hemostasis at 0545; no s/sx of hematoma observed. Pressure dressing applied. Addendum: 06/17/18 at 0648 by ANDRIA BOURNE RN Amended: Links added.
[2018-06-17 06:20] LABS: HEMATOCRIT 40.1 % (39.0-53.0); HEMOGLOBIN 13.2 g/dL (13.0-17.5); RED BLOOD COUNT 4.32 x10^6/uL (4.30-5.70); RED CELL DISTRIBUTION WIDTH 14.4 % (11.5-14.5); WHITE BLOOD COUNT 9.2 x10^3/uL (4.0-11.0)
--- NOTE | 2018-06-17 06:31 | EKG ---
[facility] [address] [place] [address] Test Date: 2018-06-17 Test Time: 06:25:29 Pat Name: ANA GUERRERO Department: Patient ID: [facility]-[id number] Room: 108 1 Gender: M Dispersion Mixer: [facility] : 1960 Requested By: SIOMARA TRIVEDI Order Number: [id number] Reading MD: Vinnie Craven MD Measurements Intervals [place] Rate: 71 P: 62 MT: 154 QRS: 62 QRSD: 90 T: 48 QT: 372 QTc: 404 Interpretive Statements SINUS RHYTHM NON-SPECIFIC ST/T CHANGES Electronically Signed On 06-23-2018 9:09:31 MUSEUM TOUR GUIDE by Vinnie Craven MD
[2018-06-17 06:34] LABS: CALCIUM 8.8 mg/dL (8.5-10.1); CREATININE 0.9 mg/dL (0.7-1.3); GFR 86.1; POTASSIUM 4.5 mmol/L (3.5-5.1)
[2018-06-17] MEDS ORDERED: MAGNESIUM SULFATE 1GM 100 ML IV ONE (08:00)
[2018-06-17] MEDS ORDERED: ASPIRIN RECTAL 300 MG SUPP. PR PRN (08:00)
--- NOTE | 2018-06-17 08:04 | PDOC ---
Progress Note Subjective Subjective Doing very well. Normotensive, SR, minimal tube output. Good UO. Hb 13.2, creat 0.9. Astor and a-line are out. 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, oriented x 3, no focal neurologic deficit SKIN: No rash IV: ok Labs Lab Laboratory Tests Test 06/16/18 08:05 06/16/18 08:07 06/16/18 09:32 06/16/18 09:34 Activated Clotting Time 108 SEC (90-125) 756 SEC (90-125) Bedside Hemoglobin (Calculated) 15.3 g/dL (14-18) 14.6 g/dL (14-18) Bedside Hematocrit 45 % (37-52) 43 % (37-52) Bedside Arterial pH 7.37 (7.35-7.45) 7.37 (7.35-7.45) Bedside Arterial pCO2 52 mmHg (35-45) 51 mmHg (35-45) Bedside Arterial pO2 502 mmHg (75-100) 520 mmHg (75-100) Bedside Arterial HCO3 30 mmol/L (21-28) 30 mmol/L (21-28) Bedside Arterial Total CO2 32 mmol/L (21-32) 31 mmol/L (21-32) Arterial Bld O2 Saturation (Measur) 100 % (95-99) 100 % (95-99) Bedside Arterial Blood Base Excess 5 mmol/L (0-3) 4 mmol/L (0-3) Bedside FiO2 100.0 100.0 Bedside Sodium 140 mmol/L (135-145) 140 mmol/L (135-145) Bedside Potassium 4.1 mmol/L (3.5-5.0) 4.3 mmol/L (3.5-5.0) Glucose Level 94 mg/dL (70-99) 108 mg/dL (70-99) Bedside Ionized Calcium (Kenny) 1.18 mmol/L (1.13-1.32) 1.13 mmol/L (1.13-1.32) Test 06/16/18 10:33 06/16/18 10:35 06/16/18 10:58 06/16/18 10:59 Activated Clotting Time 726 SEC (90-125) 679 SEC (90-125) Bedside Hemoglobin (Calculated) 12.2 g/dL (14-18) 12.2 g/dL (14-18) Bedside Hematocrit 36 % (37-52) 36 % (37-52) Bedside Arterial pH 7.37 (7.35-7.45) 7.42 (7.35-7.45) Bedside Arterial pCO2 44 mmHg (35-45) 40 mmHg (35-45) Bedside Arterial pO2 327 mmHg (75-100) 285 mmHg (75-100) Bedside Arterial HCO3 26 mmol/L (21-28) 26 mmol/L (21-28) Bedside Arterial Total CO2 27 mmol/L (21-32) 27 mmol/L (21-32) Arterial Bld O2 Saturation (Measur) 100 % (95-99) 100 % (95-99) Bedside Arterial Blood Base Excess 0 mmol/L (0-3) 1 mmol/L (0-3) Bedside FiO2 70.0 70.0 Bedside Sodium 140 mmol/L (135-145) 140 mmol/L (135-145) Bedside Potassium 5.2 mmol/L (3.5-5.0) 5.2 mmol/L (3.5-5.0) Glucose Level 105 mg/dL (70-99) 102 mg/dL (70-99) Bedside Ionized Calcium (Kenny) 1.05 mmol/L (1.13-1.32) 1.06 mmol/L (1.13-1.32) Test 06/16/18 11:34 06/16/18 11:45 06/16/18 11:47 06/16/18 12:35 White Blood Count 7.8 x10^3/uL (4.0-11.0) Hemoglobin 11.5 g/dL (13.0-17.5) Hematocrit 34.8 % (39.0-53.0) Platelet Count 139 x10^3/uL (140-400) Prothrombin Time 18.1 SEC (11.7-14.0) Prothromb Time International Ratio 1.5 (0.8-1.1) Activated Partial Thromboplast Time 33 SEC (24-38) Fibrinogen 266 mg/dL (200-440) Activated Clotting Time 133 SEC (90-125) Bedside Hemoglobin (Calculated) 11.2 g/dL (14-18) 11.9 g/dL (14-18) Bedside Hematocrit 33 % (37-52) 35 % (37-52) Bedside Arterial pH 7.38 (7.35-7.45) 7.34 (7.35-7.45) Bedside Arterial pCO2 45 mmHg (35-45) 48 mmHg (35-45) Bedside Arterial pO2 401 mmHg (75-100) 458 mmHg (75-100) Bedside Arterial HCO3 27 mmol/L (21-28) 26 mmol/L (21-28) Bedside Arterial Total CO2 28 mmol/L (21-32) 27 mmol/L (21-32) Arterial Bld O2 Saturation (Measur) 100 % (95-99) 100 % (95-99) Bedside Arterial Blood Base Excess 2 mmol/L (0-3) 0 mmol/L (0-3) Bedside FiO2 100.0 100.0 Bedside Sodium 140 mmol/L (135-145) 143 mmol/L (135-145) Bedside Potassium 4.6 mmol/L (3.5-5.0) 4.1 mmol/L (3.5-5.0) Glucose Level 88 mg/dL (70-99) 76 mg/dL (70-99) Bedside Ionized Calcium (Kenny) 1.81 mmol/L (1.13-1.32) 1.53 mmol/L (1.13-1.32) Test 06/16/18 12:37 06/16/18 13:15 06/16/18 13:17 06/16/18 15:57 Activated Clotting Time 129 SEC (90-125) O2 Saturation 99 % (92-99) Arterial Blood pH 7.36 (7.35-7.45) Arterial Blood pH (Temp corrected) 7.37 Arterial Blood pCO2 at Patient Temp 40 mmHg (35-46) Arterial Blood pCO2 (Temp correct) 39 mmHg Arterial Blood pO2 at Patient Temp 501 mmHg (65-108) Arterial Blood pO2 (Temp corrected) 495 mmHg Arterial Blood HCO3 22 mmol/L (21-28) Arterial Blood Base Excess -3 mmol/L (-3-3) Oxyhemoglobin 98.0 % Methemoglobin 0.4 % (0.0-1.9) Carbon Monoxide, Quantitative 0.9 % (0.0-1.9) FiO2 100 White Blood Count 7.7 x10^3/uL (4.0-11.0) Red Blood Count 4.21 x10^6/uL (4.30-5.70) Hemoglobin 13.0 g/dL (13.0-17.5) Hematocrit 39.1 % (39.0-53.0) Mean Corpuscular Volume 93 fL (79-100) Mean Corpuscular Hemoglobin 31 pg (25-35) Mean Corpuscular Hemoglobin Concent 33 g/dL (31-37) Red Cell Distribution Width 14.6 % (11.5-14.5) Platelet Count 118 x10^3/uL (140-400) Prothrombin Time 16.0 SEC (11.7-14.0) Prothromb Time International Ratio 1.3 (0.8-1.1) Activated Partial Thromboplast Time 32 SEC (24-38) Sodium Level 143 mmol/L (136-145) Potassium Level 4.1 mmol/L (3.5-5.1) Chloride Level 109 mmol/L (98-107) Carbon Dioxide Level 24 mmol/L (21-32) Anion Gap 10 (6-14) Blood Urea Nitrogen 14 mg/dL (8-26) Creatinine 0.8 mg/dL (0.7-1.3) Estimated GFR (Cockcroft-Gault) 98.6 Glucose Level 86 mg/dL (70-99) Calcium Level 9.9 mg/dL (8.5-10.1) Magnesium Level 2.3 mg/dL (1.8-2.4) Glucose (Fingerstick) 75 mg/dL (70-99) 141 mg/dL (70-99) Test 06/16/18 16:00 06/16/18 17:20 06/16/18 17:21 06/16/18 20:25 O2 Saturation 95 % (92-99) Arterial Blood pH 7.21 (7.35-7.45) Arterial Blood pCO2 at Patient Temp 57 mmHg (35-46) Arterial Blood pO2 at Patient Temp 92 mmHg (65-108) Arterial Blood HCO3 22 mmol/L (21-28) Arterial Blood Base Excess -6 mmol/L (-3-3) FiO2 40 White Blood Count 13.0 x10^3/uL (4.0-11.0) Red Blood Count 4.36 x10^6/uL (4.30-5.70) Hemoglobin 13.3 g/dL (13.0-17.5) Hematocrit 40.9 % (39.0-53.0) Mean Corpuscular Volume 94 fL (79-100) Mean Corpuscular Hemoglobin 31 pg (25-35) Mean Corpuscular Hemoglobin Concent 33 g/dL (31-37) Red Cell Distribution Width 14.7 % (11.5-14.5) Platelet Count 166 x10^3/uL (140-400) Potassium Level 5.8 mmol/L (3.5-5.1) Glucose (Fingerstick) 127 mg/dL (70-99) 121 mg/dL (70-99) Test 06/17/18 00:25 06/17/18 05:45 06/17/18 05:47 Glucose (Fingerstick) 138 mg/dL (70-99) 115 mg/dL (70-99) White Blood Count 9.2 x10^3/uL (4.0-11.0) Red Blood Count 4.32 x10^6/uL (4.30-5.70) Hemoglobin 13.2 g/dL (13.0-17.5) Hematocrit 40.1 % (39.0-53.0) Mean Corpuscular Volume 93 fL (79-100) Mean Corpuscular Hemoglobin 31 pg (25-35) Mean Corpuscular Hemoglobin Concent 33 g/dL (31-37) Red Cell Distribution Width 14.4 % (11.5-14.5) Platelet Count 149 x10^3/uL (140-400) Sodium Level 142 mmol/L (136-145) Potassium Level 4.5 mmol/L (3.5-5.1) Chloride Level 105 mmol/L (98-107) Carbon Dioxide Level 26 mmol/L (21-32) Anion Gap 11 (6-14) Blood Urea Nitrogen 13 mg/dL (8-26) Creatinine 0.9 mg/dL (0.7-1.3) Estimated GFR (Cockcroft-Gault) 86.1 Glucose Level 126 mg/dL (70-99) Calcium Level 8.8 mg/dL (8.5-10.1) Magnesium Level 2.0 mg/dL (1.8-2.4) Objective Assessment POD#1, s/p CABG x 2 (PETER to LAD, SVG to RPDA) Doing very well. Normotensive, SR, minimal tube output. Good UO. Hb 13.2, creat 0.9. Astor and a-line are out Plan Plan of Care D/c mediastinal tubes Switch amiodarone to po 200mg BID Stop insulin drip-start sliding scale Ambulationa and pulm toilet ASA, b charity (may have to hold this morning SBP 90s) and statin SIOMARA TRIVEDI MD Jun 17, 2018 08:04
--- NOTE | 2018-06-17 08:11 | RAD ---
Examination: PORTABLE CHEST 1V History: POST OP OPEN HEART Comparison/Correlation: 06/16/2018 AP view of the chest Findings: Portable upright frontal view chest was obtained. Right internal jugular catheter sheath terminates overlying the superior vena cava. Sternal wires are present. Left basilar chest tube is present. No infiltrate or effusion. No definite pneumothorax. Minimal linear atelectasis in the retrocardiac region is suspected. Impression: No suspicious process. Electronically signed by: Red Lamar MD (06/17/2018 8:06 AM) [facility]
[2018-06-17] MEDS: FAMOTIDINE 20 MG/2 ML VIAL IVP SCH ×2 (08:14→21:11)
[2018-06-17] MEDS: ASPIRIN ENTERIC COATED 325 MG TABLET.DR. PO SCH (08:14)
[2018-06-17] MEDS: SENNOSIDES/DOCUSATE 8.6/50MG TABLET. PO SCH ×2 (08:15→21:10)
[2018-06-17] MEDS: ACETAMINOPHEN 325 MG TABLET. PO PRN ×3 (08:15→17:56)
[2018-06-17] MEDS: ALBUMIN HUMAN 5% 250 ML IV PRN (08:19)
[2018-06-17] MEDS: AMIODARONE HCL 200 MG TABLET. PO SCH ×2 (08:24→21:10)
[2018-06-17] MEDS: METOPROLOL TART IMMED RELEASE 25 MG TABLET. PO SCH ×2 (09:00→21:11)
[2018-06-17] MEDS ORDERED: CHLORHEXIDINE 0.12% 15 ML MOUTHWASH. MM SCH (09:00)
[2018-06-17] MEDS ORDERED: DEXTROSE 50% 25 GM / 50ML DISP.SYRIN. IV PRN (09:15)
[2018-06-17] MEDS: INSULIN LISPRO 300 UNITS/3 ML INSULN.PEN. SQ SCH ×2 (12:00→17:00)
--- NOTE | 2018-06-17 12:02 | NUR ---
SS following for discharge planning. SS reviewed pt chart. Pt is from home and currently on oxygen. PT/OT ordered. No evaluations at this time. SS will await PT/OT recommendations and will continue to follow for pending discharge needs.
--- NOTE | 2018-06-17 13:43 | PDOC2 ---
DEIDRA KEVIN MATERIAL CONTROL ANALYST 06/17/18 1343: CARDIAC CONSULT DATE OF CONSULT Date of Consult DATE: 06/17/18 TIME: 13:32 REASON FOR CONSULT Reason for Consult: CABG REFERRING PHYSICIAN Referring Physician: Dr. Che SOURCE Source: Chart review, Patient HISTORY OF PRESENT ILLNESS HISTORY OF PRESENT ILLNESS This is a 58 yo male,with a history of multi-vessel disease, who presented electively for CABG. Patient underwent CABG x2 with PETER to LAD and SVG to RPDA. Patient have done very well post-operatively. PAST MEDICAL HISTORY Cardiovascular: CAD (s/p PCI/stents), HTN, NC, Hyperlipidemia Pulmonary: COPD GI: GERD Heme/Onc: No pertinent hx Psych: No pertinent hx Musculoskeletal: Osteoarthritis Rheumatologic: Gout Infectious disease: No pertinent hx ENT: No pertinent hx Renal/: No pertinent hx Endocrine: No pertinent hx Dermatology: No pertinent hx PAST SURGICAL HISTORY Past Surgical History: Other (PCI/stents) FAMILY HISTORY Family History: Heart Disease, Hypertension CURRENT MEDICATIONS CURRENT MEDICATIONS Current Medications Medications (Trade) Dose Ordered Sig/Traci Route PRN Reason Start Time Stop Time Status Last Admin Dose Admin Famotidine (Pepcid Vial) 20 mg BID IVP 06/16/18 21:00 06/17/18 08:14 Senna/Docusate Sodium (Senna Plus) 1 tab BID PO 06/16/18 21:00 06/17/18 08:15 Aspirin (Ecotrin) 325 mg DAILYWBKFT PO 06/17/18 08:00 06/17/18 08:14 Cefazolin Sodium/ Dextrose 50 ml @ 100 mls/hr Q8H IV 06/16/18 20:00 06/18/18 04:29 06/17/18 11:37 Potassium Chloride/Water 50 ml @ 50 mls/hr Q1H IV 06/16/18 14:30 06/16/18 16:29 DC 06/16/18 14:59 Ketorolac Tromethamine (Toradol 15mg Vial) 15 mg PRN Q8HRS PRN IV PAIN 06/16/18 22:30 06/21/18 22:29 06/17/18 08:14 Magnesium Sulfate/ Dextrose 100 ml @ 100 mls/hr 1X ONCE IV 06/17/18 08:00 06/17/18 08:59 DC 06/17/18 09:09 Amiodarone HCl (Cordarone) 200 mg BID PO 06/17/18 09:00 06/17/18 08:24 ALLERGIES ALLERGIES: Coded Allergies: No Known Drug Allergies (Unverified , 06/16/18) ROS Review of System 14 point ROS conducted with pertinent positives noted above in HPI PHYSICAL EXAM General: Alert, Oriented X3, Cooperative, No acute distress HEENT: Atraumatic, Mucous membr. moist/pink Lungs: Clear to auscultation, Other (diminished bases, Sternal DRSG CDI) Heart: Regular rate, Normal S1, Normal S2 Abdomen: Soft Extremities: No edema, Normal pulses, Other (KEVIN to LLE) Skin: No rashes Neuro: Normal speech, Sensation intact Psych/Mental Status: Mental status NL, Mood NL MUSCULOSKELETAL: Osteoarthritic changes both hands VITALS VITALS Vital Signs Date Time Temp Pulse Resp B/P (MAP) Pulse Ox O2 Delivery O2 Flow Rate FiO2 06/17/18 12:36 16 97 Nasal Cannula 2.0 06/17/18 10:00 69 110/64 (79) 06/17/18 08:00 97.6 97.6 LABS Lab: Laboratory Tests Test 06/16/18 15:57 06/16/18 16:00 06/16/18 17:20 06/16/18 17:21 Glucose (Fingerstick) 141 mg/dL (70-99) 127 mg/dL (70-99) O2 Saturation 95 % (92-99) Arterial Blood pH 7.21 (7.35-7.45) Arterial Blood pCO2 at Patient Temp 57 mmHg (35-46) Arterial Blood pO2 at Patient Temp 92 mmHg (65-108) Arterial Blood HCO3 22 mmol/L (21-28) Arterial Blood Base Excess -6 mmol/L (-3-3) FiO2 40 White Blood Count 13.0 x10^3/uL (4.0-11.0) Red Blood Count 4.36 x10^6/uL (4.30-5.70) Hemoglobin 13.3 g/dL (13.0-17.5) Hematocrit 40.9 % (39.0-53.0) Mean Corpuscular Volume 94 fL (79-100) Mean Corpuscular Hemoglobin 31 pg (25-35) Mean Corpuscular Hemoglobin Concent 33 g/dL (31-37) Red Cell Distribution Width 14.7 % (11.5-14.5) Platelet Count 166 x10^3/uL (140-400) Potassium Level 5.8 mmol/L (3.5-5.1) Test 06/16/18 20:25 06/17/18 00:25 06/17/18 05:45 06/17/18 05:47 Glucose (Fingerstick) 121 mg/dL (70-99) 138 mg/dL (70-99) 115 mg/dL (70-99) White Blood Count 9.2 x10^3/uL (4.0-11.0) Red Blood Count 4.32 x10^6/uL (4.30-5.70) Hemoglobin 13.2 g/dL (13.0-17.5) Hematocrit 40.1 % (39.0-53.0) Mean Corpuscular Volume 93 fL (79-100) Mean Corpuscular Hemoglobin 31 pg (25-35) Mean Corpuscular Hemoglobin Concent 33 g/dL (31-37) Red Cell Distribution Width 14.4 % (11.5-14.5) Platelet Count 149 x10^3/uL (140-400) Sodium Level 142 mmol/L (136-145) Potassium Level 4.5 mmol/L (3.5-5.1) Chloride Level 105 mmol/L (98-107) Carbon Dioxide Level 26 mmol/L (21-32) Anion Gap 11 (6-14) Blood Urea Nitrogen 13 mg/dL (8-26) Creatinine 0.9 mg/dL (0.7-1.3) Estimated GFR (Cockcroft-Gault) 86.1 Glucose Level 126 mg/dL (70-99) Calcium Level 8.8 mg/dL (8.5-10.1) Magnesium Level 2.0 mg/dL (1.8-2.4) Test 06/17/18 11:56 Glucose (Fingerstick) 97 mg/dL (70-99) ECHOCARDIOGRAM ECHOCARDIOGRAM <Conclusion> Akinetic base to mid inferior and posterior pérez. The Ejection Fraction is 45-50%. Transmitral Doppler flow pattern is Grade I-abnormal relaxation pattern. Trace tricuspid valve regurgitation. There is no evidence of significant pericardial effusion. DATE: 06/14/18 1058 STRESS TEST STRESS TEST Conclusion 1. No EKG evidence of stress induced ischemia. 2. Nuclear images show a fixed inferior wall defect most consistent with a previous infarct. 3. LV systolic function is intact with an ejection fraction of 54% and no wall motion abnormalities. 4. Moderately low risk Lexiscan nuclear stress test. DATE: 07/07/17 1153 HEART CATH HEART CATH CORONARY ANGIOGRAPHY: LM is a large caliber vessel with normal angiographic appearance. LAD is a moderate caliber vessel with a mid 70% ISR of the previously placed stent. D1 is a small caliber vessel with a mid 40% stenosis. LCx is a moderate caliber non-dominant vessel with a patent mid stent. OM1 is a moderate caliber vessel with normal angiographic appearance. LPL1 is a moderate caliber bifurcating vessel with mild luminal irregularities. RCA is a large caliber dominant vessel with a mid to distal 100% occlusion at the site of a previously placed stent. RPDA and RPL are moderate caliber vessels that fill via robust left to right collaterals. Conclusion 1. Normal LV systolic function. Ef 55% 2. Three vessel coronary disease with ISR of the LAD stent and occlusion of the RCA stents Recommendations CABG with PETER to LAD versus PCI of the LAD with staged PCI of the RCA PIECE PRESSER. Continue aggressive medical therapy including asa, statin and imdur. Depending on revascularization plans, will determine need for continuation of Plavix. DATE: 06/09/18 1409 ASSESSMENT/PLAN ASSESSMENT/PLAN 1. Multivessel CAD; s/p CABG x2 with PETER to LAD and SVG to RPDA. POD #1. Doing very well post-operatively 2. Hypertension; controlled 3. Hyperlipidemia; LDL 91 (03/27) 4. Chronic systolic HF with ICM; LVEF 45-50%; compensated Recommendations Continue ASA, BB Add statin Amiodarone for AFIB prophylaxis Increase ambulation Supportive care CHRIS RECINOS MD 06/17/18 1800: CARDIAC CONSULT ASSESSMENT/PLAN ASSESSMENT/PLAN Pt. seen and examined. Agree with above SLURRY TANK TENDER note. Doing well post-op Med changes as above. Supportive care. Discussed with patient and . DEIDAR KEVIN DIGNA Jun 17, 2018 13:43 CHRIS RECINOS MD Jun 17, 2018 18:00
[2018-06-17] MEDS: IV RINGERS,LACTATED 1000ML 1,000 ML IV SCH (15:03)
[2018-06-17] MEDS: ATORVASTATIN CALCIUM 40 MG TABLET. PO SCH (21:10)
[2018-06-18] VITALS (17 sets, daily range): BP systolic 87–129; BP diastolic 60–98
[2018-06-18] MEDS: oxyCODONE IR 5 MG TABLET PO PRN ×6 (01:23→21:32)
[2018-06-18 06:24] LABS: HEMATOCRIT 38.1 % (39.0-53.0); HEMOGLOBIN 12.8 g/dL (13.0-17.5); RED BLOOD COUNT 4.08 x10^6/uL (4.30-5.70); RED CELL DISTRIBUTION WIDTH 14.7 % (11.5-14.5); WHITE BLOOD COUNT 9.3 x10^3/uL (4.0-11.0)
[2018-06-18 06:49] LABS: CALCIUM 8.9 mg/dL (8.5-10.1); CREATININE 0.9 mg/dL (0.7-1.3); GFR 86.1; POTASSIUM 4.3 mmol/L (3.5-5.1)
[2018-06-18] MEDS: INSULIN LISPRO 300 UNITS/3 ML INSULN.PEN. SQ SCH ×3 (08:00→17:00)
[2018-06-18] MEDS: AMIODARONE HCL 200 MG TABLET. PO SCH ×2 (08:34→21:31)
[2018-06-18] MEDS: FAMOTIDINE 20 MG/2 ML VIAL IVP SCH (08:35)
[2018-06-18] MEDS: METOPROLOL TART IMMED RELEASE 25 MG TABLET. PO SCH ×2 (08:35→23:36)
[2018-06-18] MEDS: ASPIRIN ENTERIC COATED 325 MG TABLET.DR. PO SCH (08:35)
[2018-06-18] MEDS: SENNOSIDES/DOCUSATE 8.6/50MG TABLET. PO SCH ×2 (08:35→21:30)
[2018-06-18] MEDS: KETOROLAC 15 MG/ML VIAL. IV PRN (09:13)
--- NOTE | 2018-06-18 11:17 | RAD ---
PORTABLE CHEST 1V History: Postop COMPARISON: One day earlier FINDINGS: Right IJ line remains. Heart size is stable. No pneumothorax. No pleural effusion. No airspace consolidation. IMPRESSION: Stable exam, no acute infiltrate. Electronically signed by: Guzman Dolan MD (06/18/2018 11:12 AM) [facility]
[2018-06-18] MEDS: IV RINGERS,LACTATED 1000ML 1,000 ML IV SCH (13:21)
--- NOTE | 2018-06-18 14:27 | PDOC ---
Progress Note Subjective Subjective Doing very well. Normotensive, SR, minimal pleural tube output. Good UO. Hb 12.8 , creat 0.8. ROS ROS No nausea No vomiting No pain No rash Vital Sign Vital Signs Vital Signs Date Time Temp Pulse Resp B/P (MAP) Pulse Ox O2 Delivery O2 Flow Rate FiO2 06/18/18 13:22 19 95 Nasal Cannula 2.0 06/18/18 13:00 71 87/60 (69) 06/18/18 12:00 98.6 98.6 Physical Exam PHYSICAL EXAM GENERAL: NAD, Alert HEENT: PERRL, OC/OP NECK: Supple, no JVD, no LN LUNGS: Clear HEART: S1S2, no gallop, no murmur ABD: Soft, NT, no organomegaly, no rebound EXT: No edema, no cyanosis ENGINE SERVICE REPAIRER: Alert, oriented x 3, no focal neurologic deficit SKIN: No rash IV: ok Labs Lab Laboratory Tests Test 06/17/18 16:57 06/18/18 06:15 06/18/18 08:29 06/18/18 12:08 Glucose (Fingerstick) 104 mg/dL (70-99) 111 mg/dL (70-99) 105 mg/dL (70-99) White Blood Count 9.3 x10^3/uL (4.0-11.0) Red Blood Count 4.08 x10^6/uL (4.30-5.70) Hemoglobin 12.8 g/dL (13.0-17.5) Hematocrit 38.1 % (39.0-53.0) Mean Corpuscular Volume 94 fL (79-100) Mean Corpuscular Hemoglobin 31 pg (25-35) Mean Corpuscular Hemoglobin Concent 34 g/dL (31-37) Red Cell Distribution Width 14.7 % (11.5-14.5) Platelet Count 124 x10^3/uL (140-400) Sodium Level 138 mmol/L (136-145) Potassium Level 4.3 mmol/L (3.5-5.1) Chloride Level 103 mmol/L (98-107) Carbon Dioxide Level 29 mmol/L (21-32) Anion Gap 6 (6-14) Blood Urea Nitrogen 13 mg/dL (8-26) Creatinine 0.9 mg/dL (0.7-1.3) Estimated GFR (Cockcroft-Gault) 86.1 Glucose Level 149 mg/dL (70-99) Calcium Level 8.9 mg/dL (8.5-10.1) Magnesium Level 1.9 mg/dL (1.8-2.4) Objective Assessment POD#2, s/p CABG x 2 (PETER to LAD, SVG to RPDA) Doing very well. Normotensive, SR, minimal pleural tube output. Good UO. Hb 12.8 , creat 0.8. Plan Plan of Care D/c pleural tube D/c pacing wires D/c cordis D/c jha Amiodarone to po 200mg BID Ambulationa and pulm toilet ASA, b charity and statin Transfer to stepdown SIOMARA TRIVEDI MD Jun 18, 2018 14:27
--- NOTE | 2018-06-18 18:24 | NUR ---
NURSING NOTE PT SEEN BY DR. TRIVEDI THIS AFTERNOON, WHO PULLED PLEURAL CHEST TUBE, AV WIRES, AND ORDERED TO REMOVE THE URIAS AND CORDIS, WHICH WERE THEN REMOVED BY THIS RN, WITHOUT COMPLICATIONS. PT AMBULATED AROUND THE ENTIRE ICU X4 THIS SHIFT.
[2018-06-18] MEDS: ATORVASTATIN CALCIUM 40 MG TABLET. PO SCH (21:30)
[2018-06-18] MEDS: FAMOTIDINE 20 MG TABLET. PO SCH (21:31)
[2018-06-18] MEDS: ACETAMINOPHEN 325 MG TABLET. PO PRN (23:36)
[2018-06-19] MEDS: oxyCODONE IR 5 MG TABLET PO PRN ×5 (02:51→20:35)
[2018-06-19 04:00] VITALS: BP 98/65
[2018-06-19 08:00] VITALS: BP 98/63
[2018-06-19] MEDS: INSULIN LISPRO 300 UNITS/3 ML INSULN.PEN. SQ SCH ×2 (08:00→12:00)
[2018-06-19] MEDS: AMIODARONE HCL 200 MG TABLET. PO SCH ×2 (08:29→20:35)
[2018-06-19] MEDS: ACETAMINOPHEN 325 MG TABLET. PO PRN (08:29)
[2018-06-19] MEDS: ASPIRIN ENTERIC COATED 325 MG TABLET.DR. PO SCH (08:29)
[2018-06-19] MEDS: SENNOSIDES/DOCUSATE 8.6/50MG TABLET. PO SCH ×2 (08:29→20:36)
[2018-06-19] MEDS: KETOROLAC 15 MG/ML VIAL. IV PRN ×2 (08:29→17:18)
[2018-06-19] MEDS: FAMOTIDINE 20 MG TABLET. PO SCH ×2 (08:29→20:35)
[2018-06-19] MEDS: METOPROLOL TART IMMED RELEASE 25 MG TABLET. PO SCH ×2 (08:30→20:36)
[2018-06-19 09:40] LABS: HEMATOCRIT 38.5 % (39.0-53.0); HEMOGLOBIN 12.6 g/dL (13.0-17.5); RED BLOOD COUNT 4.12 x10^6/uL (4.30-5.70); RED CELL DISTRIBUTION WIDTH 14.4 % (11.5-14.5); WHITE BLOOD COUNT 7.1 x10^3/uL (4.0-11.0)
[2018-06-19 09:50] LABS: CALCIUM 8.8 mg/dL (8.5-10.1); CREATININE 0.9 mg/dL (0.7-1.3); GFR 86.1; POTASSIUM 3.9 mmol/L (3.5-5.1)
[2018-06-19 12:00] VITALS: BP 114/67
[2018-06-19] MEDS: IV RINGERS,LACTATED 1000ML 1,000 ML IV SCH (12:37)
--- NOTE | 2018-06-19 13:52 | PDOC ---
Progress Note Subjective Subjective Doing very well. Normotensive, SR. No issues. 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: Alert, oriented x 3, no focal neurologic deficit SKIN: No rash IV: ok Labs Lab Laboratory Tests Test 06/18/18 17:36 06/18/18 21:32 06/19/18 08:25 06/19/18 09:18 Glucose (Fingerstick) 93 mg/dL (70-99) 116 mg/dL (70-99) 102 mg/dL (70-99) White Blood Count 7.1 x10^3/uL (4.0-11.0) Red Blood Count 4.12 x10^6/uL (4.30-5.70) Hemoglobin 12.6 g/dL (13.0-17.5) Hematocrit 38.5 % (39.0-53.0) Mean Corpuscular Volume 94 fL (79-100) Mean Corpuscular Hemoglobin 31 pg (25-35) Mean Corpuscular Hemoglobin Concent 33 g/dL (31-37) Red Cell Distribution Width 14.4 % (11.5-14.5) Platelet Count 133 x10^3/uL (140-400) Sodium Level 141 mmol/L (136-145) Potassium Level 3.9 mmol/L (3.5-5.1) Chloride Level 102 mmol/L (98-107) Carbon Dioxide Level 33 mmol/L (21-32) Anion Gap 6 (6-14) Blood Urea Nitrogen 17 mg/dL (8-26) Creatinine 0.9 mg/dL (0.7-1.3) Estimated GFR (Cockcroft-Gault) 86.1 Glucose Level 130 mg/dL (70-99) Calcium Level 8.8 mg/dL (8.5-10.1) Magnesium Level 1.9 mg/dL (1.8-2.4) Objective Assessment POD#3, s/p CABG x 2 (PETER to LAD, SVG to RPDA) Doing very well. Normotensive, SR, no issues Plan Plan of Care Amiodarone to po 200mg BID Ambulationa and pulm toilet ASA, b charity and statin Awaiting bed in stepdown D/c home tomorrow or Wednesday SIOMARA TRIVEDI MD Jun 19, 2018 13:52
[2018-06-19 16:00] VITALS: BP 108/70
[2018-06-19] MEDS ORDERED: ZOLPIDEM 5 MG TABLET. PO PRN (19:00)
[2018-06-19 20:00] VITALS: BP 125/75
[2018-06-19] MEDS: diphenhydrAMINE 50 MG/ML VIAL IVP PRN (20:36)
[2018-06-19] MEDS: ATORVASTATIN CALCIUM 40 MG TABLET. PO SCH (20:37)
[2018-06-20] VITALS: BP 123/86
[2018-06-20] MEDS: oxyCODONE IR 5 MG TABLET PO PRN ×3 (06:14→19:15)
[2018-06-20 08:00] VITALS: BP 131/81
--- NOTE | 2018-06-20 08:02 | RAD ---
Portable chest, 06/19/2018: HISTORY: Postop evaluation Comparison is made to the study from 06/18/2018. The right jugular vascular sheath and left chest tube have been removed. The heart size and pulmonary vascularity are normal. No pulmonary infiltrate is seen. There is no evidence of pneumothorax or pleural fluid. IMPRESSION: No significant postoperative abnormality is detected. Electronically signed by: Gino Mg MD (06/20/2018 7:57 AM) [facility]
[2018-06-20] MEDS: ASPIRIN ENTERIC COATED 325 MG TABLET.DR. PO SCH (08:16)
[2018-06-20] MEDS: FAMOTIDINE 20 MG TABLET. PO SCH ×2 (08:16→20:32)
[2018-06-20] MEDS: AMIODARONE HCL 200 MG TABLET. PO SCH ×2 (08:18→20:32)
[2018-06-20] MEDS: SENNOSIDES/DOCUSATE 8.6/50MG TABLET. PO SCH ×2 (08:19→21:00)
[2018-06-20] MEDS: METOPROLOL TART IMMED RELEASE 25 MG TABLET. PO SCH ×2 (08:19→20:32)
[2018-06-20] MEDS: ACETAMINOPHEN 325 MG TABLET. PO PRN (08:20)
[2018-06-20 12:00] VITALS: BP 127/78
--- NOTE | 2018-06-20 12:36 | PDOC ---
Progress Note Subjective Subjective Doing very well. Normotensive, SR. No issues. ROS ROS No nausea No vomiting No pain No rash Vital Sign Vital Signs Vital Signs Date Time Temp Pulse Resp B/P (MAP) Pulse Ox O2 Delivery O2 Flow Rate FiO2 06/20/18 12:00 98.2 61 15 127/78 (94) 97 Room Air 98.2 06/19/18 18:08 2.0 Physical Exam PHYSICAL EXAM GENERAL: NAD, Alert HEENT: PERRL, OC/OP NECK: Supple, no JVD, no LN LUNGS: Clear HEART: S1S2, no gallop, no murmur ABD: Soft, NT, no organomegaly, no rebound EXT: No edema, no cyanosis GAMEMASTER: Alert, oriented x 3, no focal neurologic deficit SKIN: No rash IV: ok Objective Assessment POD#4, s/p CABG x 2 (PETER to LAD, SVG to RPDA) Doing very well. Normotensive, SR, no issues Plan Plan of Care Amiodarone po 200mg BID for AFib prophylaxis-will stop before discharge Ambulation and pulm toilet ASA, b charity and statin Awaiting bed in stepdown D/c home tomorrow SIOMARA TRIVEDI MD Jun 20, 2018 12:36
--- NOTE | 2018-06-20 15:14 | PDOC ---
DEIDRA KEVIN APRN 06/20/18 1514: CARDIO Progress Notes Date and Time Date of Service 06/20/18 Time of Evaluation 1020 Subjective Subjective: No Chest Pain, No shortness of breath, No Palpitations, Other ( tolerating increased ambulation) Vitals Vitals Vital Signs Date Time Temp Pulse Resp B/P (MAP) Pulse Ox O2 Delivery O2 Flow Rate FiO2 06/20/18 13:13 22 97 Room Air 06/20/18 12:00 98.2 61 127/78 (94) 98.2 06/19/18 18:08 2.0 Weight Weight [ ] Input and Output Intake and Output Intake and Output 06/20/18 07:01 Intake Total 1000 ml Output Total 2 ml Balance 998 ml Intake Oral 1000 ml Stool Total 2 ml # Voids 4 Physical Exam HEENT: Neck Supple W Full Motion LUNGS: Clear to Auscultation, Other (sternal incision well-approximated. 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 Multivessel CAD; s/p CABG x2 with PETER to LAD and SVG to RPDA. POD #4. Continues to do very well post-operatively 2. Hypertension; well-controlled 3. Hyperlipidemia; statin 4. Chronic systolic HF with ICM; LVEF 45-50%; compensated Recommendations Continue ASA, BB, statin Amiodarone for AFIB prophylaxis Encouraged IS, ambulation Supportive care Cardiac rehab referral Follow-up with Dr. Craven in month. CHRIS CRAVEN MD 06/20/18 1815: CARDIO Progress Notes Plan Plan Patient seen and examined. Agree with above nurse practitioner note. Discussed with cardiac surgery and we will continue his home aspirin and Plavix. Supportive care for now. Follow-up in the office approximately 3 months after his follow up with cardiac surgery. DEIDRA KEVIN APRN Jun 20, 2018 15:14 CHRIS CRAVEN MD Jun 20, 2018 18:15
[2018-06-20] MEDS ORDERED: ASPI325T8 PO (15:24)
[2018-06-20] MEDS ORDERED: SENN-22 PO (15:24)
[2018-06-20] MEDS ORDERED: OXYC5TAB4 PO (15:24)
[2018-06-20] MEDS ORDERED: ATOR40TA59 PO (15:24)
[2018-06-20 16:00] VITALS: BP 134/79
--- NOTE | 2018-06-20 16:28 | NUR ---
SS following up with discharge planning. PT/OT recommended home independent. No discharge needs noted at this time. SS will continue to follow for pending discharge needs.
[2018-06-20 20:00] VITALS: BP 129/75
[2018-06-20] MEDS: ATORVASTATIN CALCIUM 40 MG TABLET. PO SCH (20:32)
[2018-06-20] MEDS: diphenhydrAMINE 50 MG/ML VIAL IVP PRN (20:32)
[2018-06-21] MEDS: oxyCODONE IR 5 MG TABLET PO PRN ×2 (02:39→08:24)
[2018-06-21 04:00] VITALS: BP 146/80
[2018-06-21 06:57] LABS: BASO % 1 % (0-3); EOS # 0.3 x10^3/uL (0.0-0.7); EOS % 4 % (0-3); HEMATOCRIT 35.9 % (39.0-53.0); HEMOGLOBIN 12.1 g/dL (13.0-17.5); LYMPH # 0.9 x10^3/uL (1.0-4.8); LYMPH % 13 % (24-48); MEAN CORPUSCULAR HEMOGLOBIN 31 pg (25-35); MEAN CORPUSCULAR HGB CONC 34 g/dL (31-37); MEAN CORPUSCULAR VOLUME 93 fL (79-100); MONO # 0.8 x10^3/uL (0.0-1.1); MONO % 12 % (0-9); NEUT # 4.8 x10^3uL (1.8-7.7); NEUT % 71 % (31-73); PLATELET COUNT 187 x10^3/uL (140-400); RED BLOOD COUNT 3.87 x10^6/uL (4.30-5.70); RED CELL DISTRIBUTION WIDTH 14.4 % (11.5-14.5); WHITE BLOOD COUNT 6.8 x10^3/uL (4.0-11.0)
[2018-06-21 07:14] LABS: CALCIUM 8.5 mg/dL (8.5-10.1); CREATININE 0.8 mg/dL (0.7-1.3); GFR 98.6; POTASSIUM 3.9 mmol/L (3.5-5.1)
--- NOTE | 2018-06-21 07:50 | PDOC ---
Progress Note Subjective Subjective Doing very well. Normotensive, SR. No issues. 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: Alert, oriented x 3, no focal neurologic deficit SKIN: No rash IV: ok Labs Lab Laboratory Tests Test 06/21/18 06:20 White Blood Count 6.8 x10^3/uL (4.0-11.0) Red Blood Count 3.87 x10^6/uL (4.30-5.70) Hemoglobin 12.1 g/dL (13.0-17.5) Hematocrit 35.9 % (39.0-53.0) Mean Corpuscular Volume 93 fL (79-100) Mean Corpuscular Hemoglobin 31 pg (25-35) Mean Corpuscular Hemoglobin Concent 34 g/dL (31-37) Red Cell Distribution Width 14.4 % (11.5-14.5) Platelet Count 187 x10^3/uL (140-400) Neutrophils (%) (Auto) 71 % (31-73) Lymphocytes (%) (Auto) 13 % (24-48) Monocytes (%) (Auto) 12 % (0-9) Eosinophils (%) (Auto) 4 % (0-3) Basophils (%) (Auto) 1 % (0-3) Neutrophils # (Auto) 4.8 x10^3uL (1.8-7.7) Lymphocytes # (Auto) 0.9 x10^3/uL (1.0-4.8) Monocytes # (Auto) 0.8 x10^3/uL (0.0-1.1) Eosinophils # (Auto) 0.3 x10^3/uL (0.0-0.7) Basophils # (Auto) 0.0 x10^3/uL (0.0-0.2) Sodium Level 141 mmol/L (136-145) Potassium Level 3.9 mmol/L (3.5-5.1) Chloride Level 102 mmol/L (98-107) Carbon Dioxide Level 30 mmol/L (21-32) Anion Gap 9 (6-14) Blood Urea Nitrogen 11 mg/dL (8-26) Creatinine 0.8 mg/dL (0.7-1.3) Estimated GFR (Cockcroft-Gault) 98.6 Glucose Level 97 mg/dL (70-99) Calcium Level 8.5 mg/dL (8.5-10.1) Objective Assessment POD#5, s/p CABG x 2 (PETER to LAD, SVG to RPDA) Doing very well. Normotensive, SR, no issues Plan Plan of Care D/c home ASA, b-charity, statin, +/- losartan F/u on July 08 SIOMARA TRIVEDI MD Jun 21, 2018 07:49
[2018-06-21 07:53] VITALS: BP 120/76
[2018-06-21 08:23] VITALS: BP 120/76
[2018-06-21] MEDS: SENNOSIDES/DOCUSATE 8.6/50MG TABLET. PO SCH (08:23)
[2018-06-21] MEDS: FAMOTIDINE 20 MG TABLET. PO SCH (08:23)
[2018-06-21] MEDS: METOPROLOL TART IMMED RELEASE 25 MG TABLET. PO SCH (08:23)
[2018-06-21] MEDS: ASPIRIN ENTERIC COATED 325 MG TABLET.DR. PO SCH (08:23)
[2018-06-21] MEDS: AMIODARONE HCL 200 MG TABLET. PO SCH (08:23)
--- NOTE | 2018-06-21 14:13 | PDOC3 ---
Discharge Summary Visit Information Date of Admission: Jun 16, 2018 Date of Discharge: Jun 21, 2018 Admitting Diagnosis: CAD Final Diagnosis CAD Brief Hospital Course Allergies Allergies Coded Allergies Type Severity Reaction Last Updated Verified No Known Drug Allergies 06/16/18 No Vital Signs Vital Signs Date Time Temp Pulse Resp B/P (MAP) Pulse Ox O2 Delivery O2 Flow Rate FiO2 06/21/18 09:44 14 96 Room Air 06/21/18 08:23 96 120/76 06/21/18 07:53 98.1 98.1 Lab Results Laboratory Tests Test 06/21/18 06:20 White Blood Count 6.8 x10^3/uL (4.0-11.0) Red Blood Count 3.87 x10^6/uL (4.30-5.70) Hemoglobin 12.1 g/dL (13.0-17.5) Hematocrit 35.9 % (39.0-53.0) Mean Corpuscular Volume 93 fL (79-100) Mean Corpuscular Hemoglobin 31 pg (25-35) Mean Corpuscular Hemoglobin Concent 34 g/dL (31-37) Red Cell Distribution Width 14.4 % (11.5-14.5) Platelet Count 187 x10^3/uL (140-400) Neutrophils (%) (Auto) 71 % (31-73) Lymphocytes (%) (Auto) 13 % (24-48) Monocytes (%) (Auto) 12 % (0-9) Eosinophils (%) (Auto) 4 % (0-3) Basophils (%) (Auto) 1 % (0-3) Neutrophils # (Auto) 4.8 x10^3uL (1.8-7.7) Lymphocytes # (Auto) 0.9 x10^3/uL (1.0-4.8) Monocytes # (Auto) 0.8 x10^3/uL (0.0-1.1) Eosinophils # (Auto) 0.3 x10^3/uL (0.0-0.7) Basophils # (Auto) 0.0 x10^3/uL (0.0-0.2) Sodium Level 141 mmol/L (136-145) Potassium Level 3.9 mmol/L (3.5-5.1) Chloride Level 102 mmol/L (98-107) Carbon Dioxide Level 30 mmol/L (21-32) Anion Gap 9 (6-14) Blood Urea Nitrogen 11 mg/dL (8-26) Creatinine 0.8 mg/dL (0.7-1.3) Estimated GFR (Cockcroft-Gault) 98.6 Glucose Level 97 mg/dL (70-99) Calcium Level 8.5 mg/dL (8.5-10.1) Laboratory Tests Test 06/21/18 06:20 White Blood Count 6.8 x10^3/uL (4.0-11.0) Red Blood Count 3.87 x10^6/uL (4.30-5.70) Hemoglobin 12.1 g/dL (13.0-17.5) Hematocrit 35.9 % (39.0-53.0) Mean Corpuscular Volume 93 fL (79-100) Mean Corpuscular Hemoglobin 31 pg (25-35) Mean Corpuscular Hemoglobin Concent 34 g/dL (31-37) Red Cell Distribution Width 14.4 % (11.5-14.5) Platelet Count 187 x10^3/uL (140-400) Neutrophils (%) (Auto) 71 % (31-73) Lymphocytes (%) (Auto) 13 % (24-48) Monocytes (%) (Auto) 12 % (0-9) Eosinophils (%) (Auto) 4 % (0-3) Basophils (%) (Auto) 1 % (0-3) Neutrophils # (Auto) 4.8 x10^3uL (1.8-7.7) Lymphocytes # (Auto) 0.9 x10^3/uL (1.0-4.8) Monocytes # (Auto) 0.8 x10^3/uL (0.0-1.1) Eosinophils # (Auto) 0.3 x10^3/uL (0.0-0.7) Basophils # (Auto) 0.0 x10^3/uL (0.0-0.2) Sodium Level 141 mmol/L (136-145) Potassium Level 3.9 mmol/L (3.5-5.1) Chloride Level 102 mmol/L (98-107) Carbon Dioxide Level 30 mmol/L (21-32) Anion Gap 9 (6-14) Blood Urea Nitrogen 11 mg/dL (8-26) Creatinine 0.8 mg/dL (0.7-1.3) Estimated GFR (Cockcroft-Gault) 98.6 Glucose Level 97 mg/dL (70-99) Calcium Level 8.5 mg/dL (8.5-10.1) Brief Hospital Course The patient is a 58-year-old male with a history of previous GA with cardiac arrest, multiple PCI's, hypertension and hyperlipidemia who presented with chest pain which occurs once or twice a week on exertion. He also reports increasing shortness of breath. He denies palpitations, orthopnea, ankle swelling. He recently had an MPI which demonstrated inferior ischemia. His LV function is preserved. Coronary angiogram last week demonstrated a 70% in-stent LAD stenosis and an occluded mid RCA. The left circumflex stent is patent without critical lesions. He was admitted on 06/16/18 for an elective CABG. Postoperatively he made an uneventful recovery. Tubes, catheters and pacing wires were all removed by POD#2. He remained in SR. He ambulated without assistance. He was discharged home on POD#5. Discharge Information Condition at Discharge: Improved Follow Up: Weeks (3) Disposition/Orders: D/C to Home Scheduled Aspirin (Aspirin) 325 Mg Tablet, 325 MG PO DAILY for cad, #60 Prescribed by: SIOMARA TRIVEDI MD on 06/20/18 1524 Atorvastatin Calcium (Atorvastatin Calcium) 40 Mg Tablet, 40 MG PO QHS for hyperlipidemia, #60 Prescribed by: SIOMARA TRIVEDI MD on 06/20/18 1524 Carvedilol (Carvedilol) 25 Mg Tablet, 25 MG PO BIDWMEALS for CARDIAC, (Reported) Entered as Reported by: BRIA KWOK on 06/09/18 0932 Last Taken: Unknown Dose on 06/15/18 0600 Last Action: Last Taken Edited on 06/16/18 06 by SHANIKA CLAY Cholecalciferol (Vitamin D3) (Vitamin D) 1,000 Unit Tablet, 1,000 UNIT PO DAILY, (Reported) Entered as Reported by: VIJAY JIMENEZ on 05/10/131928 Last Taken: Unknown Dose on 06/09/18 Last Action: Last Taken Edited on 11/25 by SHANIKA CLAY Clopidogrel Bisulfate (Clopidogrel) 75 Mg Tablet, 75 MG PO DAILY, (Reported) Entered as Reported by: VIJAY JIMENEZ on 05/10/131928 Last Taken: Unknown Dose on 06/09/18 Last Action: Last Taken Edited on 11/25 by SHANIKA CLAY Flaxseed Oil (Flax Oil) 1,000 Mg Capsule, 1,000 MG PO DAILY for supplement, ( Reported) Entered as Reported by: GINA SALAMANCA on 06/10/18 1145 Last Taken: Unknown Dose on 06/09/18 Last Action: Last Taken Edited on 11/25 by SHANIKA CLAY Losartan Potassium (Losartan Potassium) 100 Mg Tablet, 100 MG PO DAILY, ( Reported) Entered as Reported by: VIJAY JIMENEZ on 05/10/131928 Last Taken: Unknown Dose on 06/14/18 Last Action: Last Taken Edited on 06/16 by SHANIKA CLAY Pantoprazole Sodium (Pantoprazole Sodium) 40 Mg Tablet.dr, 40 MG PO DAILY, ( Reported) Entered as Reported by: VIJAY JIMENEZ on 05/10/131928 Last Taken: Unknown Dose on 06/15/18 Last Action: Last Taken Edited on 06/16 by SHANIKA CLAY Sennosides/Docusate Sodium (Senna-Time S Tablet) 1 Each Tablet, 1 TAB PO BID for constipation, #20 Prescribed by: SIOMARA TRIVEDI MD on 06/20/18 1524 Scheduled PRN Oxycodone Hcl (Oxycodone Hcl Immed.release ) 5 Mg Tablet, 5 MG PO PRN Q4HRS PRN for MODERATE PAIN, #40 Ref 0 Prescribed by: SIOMARA TRIVEDI MD on 06/20/18 1524 Discontinued Medications Ezetimibe (Zetia) 10 Mg Tablet, 10 MG PO DAILY, (Reported) Entered as Reported by: EFE LOCK on 12/03/16 1117 Last Taken: Unknown Dose on 06/14/18 Last Action: Last Taken Edited on 06/16 by SHANIKA CLAY Isosorbide Mononitrate (Isosorbide Mononitrate) 20 Mg Tablet, 30 MG PO DAILY for bp, (Reported) Entered as Reported by: GINA SALAMANCA on 06/10/181146 Last Taken: Unknown Dose on 06/14/18 Last Action: Last Taken Edited on 06/16 0611 by SIOMARA NEGRON MD Jun 21, 2018 14:13
[2018-12-15] MEDS ORDERED: ATOR40TA59 PO (09:18)
[2018-12-15] MEDS ORDERED: AMLO10TA8 PO (09:18)
== END 2018-06-21 10:00 | disposition home or self-care (01) | DRG 236 ==
LOC: OPSVCIP 05:42 → 1 WEST ICU 12:37
PROVIDERS: ADMIT Thoracic Surgery (Cardiothoracic Vascular Surgery); ATTEND Thoracic Surgery (Cardiothoracic Vascular Surgery)
PROC: 021009W Bypass Coronary Artery, One Artery from Aorta with Autologous Venous Tissue, Open Approach (ICD-10-PCS; 2018-06-16)
PROC: 06BQ4ZZ Excision of Left Saphenous Vein, Percutaneous Endoscopic Approach (ICD-10-PCS; 2018-06-16)
PROC: 5A1221Z Performance of Cardiac Output, Continuous (ICD-10-PCS; 2018-06-16)
PROC: 02100A9 Bypass Coronary Artery, One Artery from Left Internal Mammary with Autologous Arterial Tissue, Open Approach (ICD-10-PCS; principal; 2018-06-16 07:30)
DX: T82.855A Stenosis of coronary artery stent, initial encounter (principal); I25.110 Atherosclerotic heart disease of native coronary artery with unstable angina pectoris; I50.22 Chronic systolic (congestive) heart failure; I25.5 Ischemic cardiomyopathy; E78.5 Hyperlipidemia, unspecified; I11.0 Hypertensive heart disease with heart failure; M19.90 Unspecified osteoarthritis, unspecified site; M10.9 Gout, unspecified; J44.9 Chronic obstructive pulmonary disease, unspecified; K21.9 Gastro-esophageal reflux disease without esophagitis; F17.210 Nicotine dependence, cigarettes, uncomplicated; Y83.8 Other surgical procedures as the cause of abnormal reaction of the patient, or of later complication, without mention of misadventure at the time of the procedure; Y92.89 Other specified places as the place of occurrence of the external cause; I25.2 Old myocardial infarction; Z86.74 Personal history of sudden cardiac arrest; Z79.899 Other long term (current) drug therapy; Z95.5 Presence of coronary angioplasty implant and graft; Z82.49 Family history of ischemic heart disease and other diseases of the circulatory system
CPT/HCPCS: 36415; 36600; 71045; 80048; 82803; 82805; 82962; 83735; 84132; 85025; 85027; 85347; 85384; 85610; 85730; 86850; 86900; 86901; 86920; 93005; 94002; 94640; 99406; C1781; J0282; J0690; J0696; J1200; J1644; J1815; J1885; J2001; J2150; J2250; J2270; J2405; J2440; J2704; J3370; J3475; J3480; J3490; J7030; J7040; J7050; J7120; J7613; P9041; P9045; P9046; 97116; 97530; 97535; G0378

== ENCOUNTER → 2018-07-08 | Outpatient (CLI) | payer OTHER ==
[2018-06-21 08:23] VITALS: BP 120/76
[~2018-07-08] MED LIST changes: -AMINOCAPROIC ACID 5,000 MG/20 ML VIAL. IV ONE; +ATOR40TA59 PO; -ETOMIDATE 20 MG/10 ML VIAL. IV ONE; -HEPARIN 30,000 UNIT/30 ML VIAL. ONE; -HEPARIN for IV BOLUS 10,000 UNIT/10 ML VIAL. ONE; -ISOFLURANE > 120 MINUTES. IH ONE; -LIDOCAINE 2% PF 5 ML VIAL. ONE; -MIDAZOLAM HCL/PF 2 MG/2 ML VIAL. ONE; +OXYC5TAB4 PO; +PANT40TA5 PO; -PANT40TA77 PO; -PHENYLEPHRINE 10 MG/ML VIAL. ONE; -ROCURONIUM 100 MG/10 ML VIAL. ONE; +SENN-22 PO; -SUFentanil 250 MCG/5 ML AMPUL. ONE
--- NOTE | 2018-07-08 16:37 | RAD ---
CHEST PA LATERAL Clinical indications: status-post coronary artery bypass graft COMPARISON: June 19, 2018. Findings: There is a new lingular infiltrate. Small posterior left-sided pleural effusion is seen. No pneumothorax is evident. The heart size, pulmonary vasculature, mediastinum and both talia are stable. The osseous structures appear intact. Impression: New lingular infiltrate. Electronically signed by: Orestes Goodwin MD (07/08/2018 4:34 PM) [facility]
== END | disposition home or self-care (01) ==
LOC: RAD 09:56
PROVIDERS: ATTEND Thoracic Surgery (Cardiothoracic Vascular Surgery)
DX: Z48.812 Encounter for surgical aftercare following surgery on the circulatory system (principal); R91.8 Other nonspecific abnormal finding of lung field; Z95.1 Presence of aortocoronary bypass graft
CPT/HCPCS: 71046

== ENCOUNTER → 2018-10-31 | Outpatient (CLI) | payer OTHER ==
--- NOTE | 2018-10-31 17:08 | RAD ---
Chest, PA and Lateral: Technique: PA and lateral views of the chest were obtained. History: Status post CABG. Comparison: 07/08/2018. Findings: The heart and pulmonary vasculature appear within normal limits. The lungs are clear. The pleural margins are clear. Changes of CABG. Median sternotomy wires identified. Impression: No acute chest process is seen. Electronically signed by: Joey Carrillo MD (10/31/2018 5:05 PM) [id number]
== END | disposition home or self-care (01) ==
LOC: RAD 15:40
PROVIDERS: ATTEND Thoracic Surgery (Cardiothoracic Vascular Surgery)
DX: Z95.1 Presence of aortocoronary bypass graft (principal)
CPT/HCPCS: 71046

== ENCOUNTER → 2018-12-14 | Outpatient (CLI) | payer OTHER ==
[2018-06-21 08:23] VITALS: BP_SYST 120
[~2018-12-14] MED LIST changes: +AMLO10TA8 PO; -PANT40TA5 PO; +PANT40TA77 PO
[2018-12-14 11:50] LABS: BASO # 0.1 x10^3/uL (0.0-0.2); BASO % 1 % (0-3); EOS # 0.3 x10^3/uL (0.0-0.7); EOS % 6 % (0-3); HEMOGLOBIN 15.4 g/dL (13.0-17.5); LYMPH % 19 % (24-48); MEAN CORPUSCULAR HEMOGLOBIN 31 pg (25-35); MEAN CORPUSCULAR HGB CONC 34 g/dL (31-37); MEAN CORPUSCULAR VOLUME 92 fL (79-100); MONO # 0.4 x10^3/uL (0.0-1.1); MONO % 8 % (0-9); NEUT # 3.3 x10^3/uL (1.8-7.7); NEUT % 65 % (31-73); PLATELET COUNT 263 x10^3/uL (140-400); RED BLOOD COUNT 5.02 x10^6/uL (4.30-5.70); RED CELL DISTRIBUTION WIDTH 14.7 % (11.5-14.5); WHITE BLOOD COUNT 5.1 x10^3/uL (4.0-11.0)
[2018-12-14 11:57] LABS: ALBUMIN 3.7 g/dL (3.4-5.0); CALCIUM 8.8 mg/dL (8.5-10.1); CREATININE 0.9 mg/dL (0.7-1.3); GFR 86.1; POTASSIUM 4.5 mmol/L (3.5-5.1)
[2018-12-19 13:35] VITALS: BP_DIAS 71
== END | disposition home or self-care (01) ==
LOC: SURGPAT 11:19
PROVIDERS: ATTEND Surgery
DX: Z01.818 Encounter for other preprocedural examination (principal); K43.9 Ventral hernia without obstruction or gangrene; K42.9 Umbilical hernia without obstruction or gangrene
CPT/HCPCS: 36415; 80048; 82040; 85025

== ENCOUNTER → 2018-12-19 | Day surgery (SDC) | payer OTHER ==
[~2018-12-19] VITALS: Ht 177.8 cm; Wt 95.5 kg
[~2018-12-19] MED LIST changes: +BUPIVAC MPF-EPI 0.5%-1:200000 30 ML VIAL. INJ ONE; +BUPIVACAINE MPF 0.5% 30 ML VIAL. ONE; +DEXAMETHASONE SOD PHOS 4 MG/ML VIAL ONE; +DOCUSATE SODIUM 100 MG CAPSULE. PO PRN; +GLYCOPYRROLATE 1 MG/5 ML VIAL. ONE; +HYDROmorphone 2 MG/ML VIAL IV PRN; +IV RINGERS,LACTATED 1000ML 1,000 ML IV SCH; +KETOROLAC 30 MG/ML INJ FOR OR. INJ ONE; +LIDOCAINE 1% PF 2 ML VIAL. ID PRN; +LIDOCAINE 2% PF 5 ML VIAL. ONE; +MORPHINE SULFATE 2 MG/ML VIAL. IV PRN; +NEOSTIGMINE METHYLSULFATE 5 MG/5 ML SYRINGE. ONE; +ONDANSETRON PF 4 MG/2 ML VIAL. IV PRN; +ONDANSETRON PF 4 MG/2 ML VIAL. ONE; +PHENYLEPHRINE in 0.9% NACL PF 1 MG/10 ML SYRINGE. IV ONE; +PROCHLORPERAZINE 10 MG/2 ML VIAL. IV PRN; +PROPOFOL 20 ML IV ONE; +ROCURONIUM 50 MG/5 ML VIAL. ONE; +SEVOFLURANE 61 TO 120 MINUTES. IH ONE; +ePHEDrine PF IN SALINE 50 MG/10 ML SYRINGE. IV ONE; +fentaNYL PF VIAL 100 MCG/2 ML VIAL IV PRN; +fentaNYL PF VIAL 100 MCG/2 ML VIAL ONE; +oxyCODONE/APAP 5/325 1 TAB TABLET PO ONE; +oxyCODONE/APAP 5/325 1 TAB TABLET PO PRN
--- NOTE | 2018-12-19 11:50 | PDOC ---
BRIEF OPERATIVE NOTE Date: Dec 19, 2018 Pre-Op Diagnosis epigastric hernia, umbilical hernia Post-Op Diagnosis same Procedure Performed repair epigastric hernia with mesh primary repair umbilical hernia Surgeon Shai [place] Hammerer Neelam CABAN Anesthesia Type: General Blood Loss 25cc IV Fluid 1200cc Specimens Obtained epigastric hernia sack umbilical hernia sack Findings no incarcerated contents in either hernia Complications none Operative Note Wk # [id number] KYLE HONG MD Dec 19, 2018 11:50
[2018-12-19] MEDS: fentaNYL PF VIAL 100 MCG/2 ML VIAL IV PRN ×3 (11:52→12:14)
--- NOTE | 2018-12-19 11:54 | DISCH ---
DISCHARGE INSTRUCTIONS Condition on Discharge Condition on Discharge: Stable Activity After Discharge Activity Instructions for Disc: Activity as tolerated, Avoid exertion, Other, see below Lifting Instructions after Dis: No heavy lifting Exercise Instruction after Dis: Walk 10 min, 3 x per day Driving Instructions after Dis: Other, see below Weight Bearing Status after Di: No restrictions Diet after Discharge Diet after Discharge: Cardiac, Low Fat, Low Sodium 4 gm Wound Incision Care Wound/Incision Care: Ice to area for comfort, May get incision wet Other wound/incision instructi: may shower Wednesday Checks after Discharge Checks after discharge: Check blood press - daily, Check your Temp as needed, Weigh Yourself Daily Follow-Up Follow up with: Shai two weeks Treatment/Equipment after DC Adaptive Equipment Issued: None KYLE HONG MD Dec 19, 2018 11:54
--- NOTE | 2018-12-19 13:25 | OP ---
DATE OF SURGERY: 12/19/2018 PREOPERATIVE DIAGNOSES: Epigastric hernia, umbilical hernia. POSTOPERATIVE DIAGNOSES: Epigastric hernia, umbilical hernia. PROCEDURE: Repair of epigastric hernia with mesh, primary repair of umbilical hernia. SURGEON: Raymundo Hong MD REHAB PHYSICIAN: MEE Galdamez. ANESTHESIA: General endotracheal. BLOOD LOSS: 25. INTRAVENOUS: 1200. DESCRIPTION OF PROCEDURE: The patient brought to the operating suite, given a general endotracheal anesthetic and the abdomen was prepped and draped in usual sterile fashion. A transverse incision just below the xiphoid was infiltrated with local anesthetic, incised and dissection carried down to the hernia. A plane was developed extraperitoneally to allow placement of a medium oval of mesh deep to the abdominal fascia, but extraperitoneal. Correct sponge count was obtained. The mesh was anchored at 12 and 6 o'clock with 0 PDS. The periphery was tacked with AbsorbaTack. Attenuated fascia closed over the repair with a running stitch of 0 Vicryl. Subcutaneous approximated with 2-0 Vicryl. Skin closed with subcuticular 4-0 Monocryl and Steri-Strips. We then turned our attention to the umbilical hernia. Plain Marcaine 0.5% infiltrated infraumbilically, incision made and dissection was carried down to the anterior sheath. The hernia was encircled and the skin freed from the hernia sac. Omental contents were reduced and the hernia sac excised. The small defect was closed with interrupted inverted 0 PDS sutures, taking care to avoid injury to abdominal contents. The 0 Vicryl reinforced the repair. When a correct sponge count was obtained, the umbilical skin was tacked to the repair with 3-0 Vicryl. Skin closed with a subcuticular 4-0 Monocryl. Steri-Strips and sterile dressings applied. Abdominal binder placed. The patient was awakened from his anesthetic and taken to the recovery room in satisfactory condition. RAYMUNDO HONG MD DR: MARCIN/shahid JOB#: [id number] / [id number]
[2018-12-19 13:35] VITALS: BP 120/71
--- NOTE | 2018-12-21 13:07 | PATHOLOGY ---
[facility] Accession Number: [id number] . 01 Material submitted: . PART A: hernia - EPIGASTRIC HERNIA SAC PART B: hernia - UMBILICAL HERNIA SAC . 01 Clinical history: . Umbilical and epigastric hernia . 02 Diagnosis: A. Segment of fibromembranous and fibroadipose tissue, epigastric hernia repair: - Hernia sac showing focal chronic inflammation, fibrosis, and foreign body granulomatous reaction. . B. Segment of focal mesothelial-lined fibromembranous and fibroadipose tissue, umbilical hernia repair: - Hernia sac showing focal chronic inflammation. (JPM:[facility] 12/21/2018) [facility]/12/21/2018 . 02 Electronically signed: . Reji Castaneda MD, Pathologist NPI- [id number] . 01 Gross description: . A. The specimen is received in formalin, labeled "Tahir Hendricks, epigastric hernia sac". Received is a segment of fibromembranous tissue with attached fibroadipose tissue measuring 11.7 x 3.2 x 1.6 cm in greatest dimensions. No distinct nodules or lesions are noted grossly. The specimen is submitted representatively in cassette A1. . B. The specimen is received in formalin, labeled "Tahir Hendricks, umbilical hernia". Received is a segment of fibromembranous tissue with a slight amount of attached lobulated tissue measuring 8.1 x 2.2 x 0.9 cm in greatest dimensions. No distinct nodules or lesions are noted grossly. The specimen is submitted representatively in cassette B1. ([facility]; 12/20/2018) QAC/QAC . 02 Pathologist provided ICD-10: K43.9, K42.9 . 02 CPT . 791218, [id number] Specimen Comment: A courtesy copy of this report has been sent to Specimen Comment: [phone], . Specimen Comment: Report sent to / DR NGO Performed at: [address], [place] [id number] MD Osvaldo Fitzgerald MD Phone: [phone] Performed at: 02 [facility] [address] [place], [place] [id number] MD Reji Castaneda MD Phone: [phone]
== END ==
LOC: SURG 07:31
PROVIDERS: ATTEND Surgery
DX: K43.9 Ventral hernia without obstruction or gangrene (principal); K42.9 Umbilical hernia without obstruction or gangrene; E78.5 Hyperlipidemia, unspecified; I25.10 Atherosclerotic heart disease of native coronary artery without angina pectoris; I11.0 Hypertensive heart disease with heart failure; I50.22 Chronic systolic (congestive) heart failure; I25.2 Old myocardial infarction; E66.9 Obesity, unspecified; Z68.34 Body mass index [BMI] 34.0-34.9, adult; Z95.1 Presence of aortocoronary bypass graft; Z98.890 Other specified postprocedural states; Z90.49 Acquired absence of other specified parts of digestive tract; Z79.82 Long term (current) use of aspirin; Z87.891 Personal history of nicotine dependence
CPT/HCPCS: 49585; A7015; C1781; J0171; J1100; J1885; J2001; J2370; J2405; J2704; J2710; J3010; J3490; J7120; J0696

== ENCOUNTER 2019-02-11 14:57 | Inpatient (IN) | payer OTHER ==
[~2019-02-11] VITALS: Ht 177.8 cm; Wt 97.3 kg
[~2019-02-11 14:57] MED LIST changes: -BUPIVAC MPF-EPI 0.5%-1:200000 30 ML VIAL. INJ ONE; -BUPIVACAINE MPF 0.5% 30 ML VIAL. ONE; -DEXAMETHASONE SOD PHOS 4 MG/ML VIAL ONE; -DOCUSATE SODIUM 100 MG CAPSULE. PO PRN; -EZET10TA18 PO; +EZET10TA20 PO; -GLYCOPYRROLATE 1 MG/5 ML VIAL. ONE; -HYDROmorphone 2 MG/ML VIAL IV PRN; -IV RINGERS,LACTATED 1000ML 1,000 ML IV SCH; -KETOROLAC 30 MG/ML INJ FOR OR. INJ ONE; -LIDOCAINE 1% PF 2 ML VIAL. ID PRN; -LIDOCAINE 2% PF 5 ML VIAL. ONE; -MORPHINE SULFATE 2 MG/ML VIAL. IV PRN; -NEOSTIGMINE METHYLSULFATE 5 MG/5 ML SYRINGE. ONE; -ONDANSETRON PF 4 MG/2 ML VIAL. IV PRN; -ONDANSETRON PF 4 MG/2 ML VIAL. ONE; -PHENYLEPHRINE in 0.9% NACL PF 1 MG/10 ML SYRINGE. IV ONE; -PROCHLORPERAZINE 10 MG/2 ML VIAL. IV PRN; -PROPOFOL 20 ML IV ONE; -ROCURONIUM 50 MG/5 ML VIAL. ONE; -SEVOFLURANE 61 TO 120 MINUTES. IH ONE; -ePHEDrine PF IN SALINE 50 MG/10 ML SYRINGE. IV ONE; -fentaNYL PF VIAL 100 MCG/2 ML VIAL IV PRN; -fentaNYL PF VIAL 100 MCG/2 ML VIAL ONE; -oxyCODONE/APAP 5/325 1 TAB TABLET PO ONE; -oxyCODONE/APAP 5/325 1 TAB TABLET PO PRN
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
[2019-02-11 15:35] LABS: BASO # 0.1 x10^3/uL (0.0-0.2); BASO % 2 % (0-3); EOS # 0.2 x10^3/uL (0.0-0.7); EOS % 4 % (0-3); HEMATOCRIT 43.5 % (39.0-53.0); HEMOGLOBIN 14.6 g/dL (13.0-17.5); LYMPH # 1.2 x10^3/uL (1.0-4.8); LYMPH % 23 % (24-48); MEAN CORPUSCULAR HEMOGLOBIN 31 pg (25-35); MEAN CORPUSCULAR HGB CONC 34 g/dL (31-37); MEAN CORPUSCULAR VOLUME 92 fL (79-100); MONO # 0.6 x10^3/uL (0.0-1.1); MONO % 11 % (0-9); NEUT # 3.3 x10^3/uL (1.8-7.7); NEUT % 61 % (31-73); PLATELET COUNT 260 x10^3/uL (140-400); RED BLOOD COUNT 4.72 x10^6/uL (4.30-5.70); WHITE BLOOD COUNT 5.4 x10^3/uL (4.0-11.0)
[2019-02-11 15:42] LABS: CALCIUM 8.8 mg/dL (8.5-10.1); GFR 76.2; POTASSIUM 4.6 mmol/L (3.5-5.1)
[2019-02-11] MEDS ORDERED: CONTRAST GIVEN. MC PRN ×2 (15:45→18:15)
[2019-02-11] MEDS ORDERED: IOHEXOL 300 MG/ML 100ML VIAL. IV ONE (15:45)
[2019-02-11 15:48] LABS: ALBUMIN 3.7 g/dL (3.4-5.0); ALBUMIN/GLOBULIN RATIO 1.2 (1.0-1.7); TOTAL BILIRUBIN 0.3 mg/dL (0.2-1.0); TOTAL PROTEIN 6.8 g/dL (6.4-8.2)
[2019-02-11 15:52] LABS: PROTHROMBIN TIME PATIENT 12.7 SEC (11.7-14.0)
--- NOTE | 2019-02-11 15:58 | RAD ---
PORTABLE CHEST 1V History: Chest pain Comparison: October 31, 2018 Findings: No consolidation or pleural effusion. Normal heart size. Prior median sternotomy. Impression: 1. No acute cardiopulmonary process. Electronically signed by: Branden Carrillo DO (02/11/2019 3:54 PM) [facility]
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
[2019-02-11] MEDS ORDERED: ONDANSETRON PF 4 MG/2 ML VIAL. IV PRN (17:30)
[2019-02-11] MEDS ORDERED: ACETAMINOPHEN 325 MG TABLET. PO PRN ×2 (17:30→18:15)
[2019-02-11] MEDS ORDERED: NITROGLYCERIN SUBLINGUAL 0.4 MG BOTTLE OF 25. SL PRN (17:30)
[2019-02-11] MEDS ORDERED: IV NORMAL SALINE 1000ML BAG 1,000 ML IV ONE (17:30)
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
[2019-02-11] MEDS ORDERED: guaiFENesin ORAL 200 MG/10 ML LIQUID. PO PRN (18:15)
[2019-02-11] MEDS ORDERED: cloNIDine HCL 0.1 MG TABLET PO PRN (18:15)
[2019-02-11] MEDS ORDERED: DOCUSATE SODIUM 100 MG CAPSULE. PO PRN (18:15)
[2019-02-11] MEDS ORDERED: 0.9 % SODIUM CHLORIDE 10 ML DISP.SYRIN. IV PRN (18:15)
[2019-02-11] MEDS ORDERED: MAG HYDROX/ALUMINUM HYD/SIMETH 30 ML ORAL.SUSP PO PRN (18:15)
[2019-02-11] MEDS ORDERED: IOHEXOL 350 MG/ML 100 ML VIAL. IV ONE (18:30)
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
[2019-02-11 19:00] VITALS: BP 122/84
[2019-02-11] MEDS: IPRATRPIUM/ALBUTEROL 0.5/2.5MG 3 ML NEBU. NEB SCH ×2 (19:20→23:57)
--- NOTE | 2019-02-11 20:00 | NUR ---
Patient arrived from ED to room 200 at 1835 in [facility]. Admission completed and monitor applied. New orders received and implemented.Care plan initiated.
[2019-02-11] MEDS: IV NORMAL SALINE 1000ML BAG 1,000 ML IV SCH (20:09)
[2019-02-11] MEDS: CYCLOBENZAPRINE 10 MG TABLET. PO PRN (20:10)
[2019-02-11] MEDS: CARVEDILOL 12.5 MG TABLET. PO SCH (20:10)
[2019-02-11] MEDS ORDERED: ASPI-630 PO (20:40)
[2019-02-11] MEDS: fentaNYL PF VIAL 100 MCG/2 ML VIAL IV PRN ×2 (21:12→23:26)
[2019-02-11] MEDS: ATORVASTATIN CALCIUM 40 MG TABLET. PO SCH (21:12)
[2019-02-11] MEDS: LORazepam 0.5 MG TABLET PO PRN (23:26)
[2019-02-11 23:30] VITALS: BP 121/73
[2019-02-12] VITALS (7 sets, daily range): BP systolic 100–121; BP diastolic 54–77
[2019-02-12] MEDS: IPRATRPIUM/ALBUTEROL 0.5/2.5MG 3 ML NEBU. NEB SCH ×7 (03:59→23:50)
--- NOTE | 2019-02-12 05:24 | NUR ---
Patient c/p pain several times overnight. Describes pain as "up the center of my chest and down the middle of my neck, but it seems to spread out to the sides." Pain is described as aching. Fentanyl given alone with little relief noted. Fentanyl given again, with ativan and patient slept through most of night. VS remain stable.
[2019-02-12] MEDS: IV NORMAL SALINE 1000ML BAG 1,000 ML IV SCH ×3 (06:07→21:31)
[2019-02-12] MEDS: PANTOPRAZOLE 40 MG TABLET.DR. PO SCH (08:33)
[2019-02-12] MEDS: CLOPIDOGREL BISULFATE 75 MG TABLET PO SCH (08:33)
[2019-02-12] MEDS: ASPIRIN 325 MG TABLET PO SCH (08:33)
[2019-02-12] MEDS: CARVEDILOL 12.5 MG TABLET. PO SCH ×2 (08:34→18:01)
[2019-02-12] MEDS: CHOLECALCIFEROL (VITAMIN D3) 1,000 UNIT TABLET PO SCH (08:34)
[2019-02-12] MEDS: amLODIPine BESYLATE 10 MG TABLET PO SCH (08:37)
[2019-02-12] MEDS: fentaNYL PF VIAL 100 MCG/2 ML VIAL IV PRN (08:38)
[2019-02-12] MEDS ORDERED: NON FORMULARY ITEM (Flaxseed Oil (Flax Oil) 1,000 MG) PO SCH (09:00)
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
[2019-02-12] MEDS ORDERED: KETOROLAC 30 MG/ML VIAL. IV ONE (09:45)
[2019-02-12] MEDS: LOSARTAN POTASSIUM 50 MG TABLET. PO SCH (10:20)
[2019-02-12] MEDS: LIDOCAINE (700MG/PATCH) PATCH. TD SCH (10:25)
--- NOTE | 2019-02-12 11:13 | EKG ---
[facility] [address] [place] [address] Test Date: 2019-02-11 Test Time: 15:03:46 Pat Name: ANA GUERRERO Department: Room: Gender: M [employer]: : [id number] Requested By: WATSON SAINI Order Number: [id number] Reading MD: Measurements Intervals Lane Rate: 62 P: 122 OK: 194 QRS: 86 QRSD: 98 T: 71 QT: 380 QTc: 391 Interpretive Statements SINUS RHYTHM NON SPECIFIC T ABNORMALITY NON SPECIFIC ST DEPRESSION BORDERLINE ECG No previous ECG available for comparison
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
--- NOTE | 2019-02-12 17:07 | CARD ---
MR#: [id number] Date of Study: 02/12/2019 Ordering Physician: STEFFEN COOK, Referring Physician: STEFFEN COOK Tech: Inocencio Fong RDCS APPROVED REPORT EXAM: Two-dimensional and M-mode echocardiogram with Doppler and color Doppler. Other Information Quality : AverageHR: 69bpm Rhythm : NSR INDICATION Chest Pain Surgery/Intervention CABG: RISK FACTORS Hypertension Obesity Hyperlipidemia Diabetes 2D DIMENSIONS RVDd3.1 (2.9-3.5cm)Left Atrium(2D)4.0 (1.6-4.0cm) IVSd0.9 (0.7-1.1cm)Aortic Root(2D)3.4 (2.0-3.7cm) LVDd5.5 (3.9-5.9cm)LVOT Diameter2.1 (1.8-2.4cm) PWd1.0 (0.7-1.1cm)LVDs4.3 (2.5-4.0cm) FS (%) 22.4 %SV66.6 ml Aortic Valve AoV Peak Tae.143.3cm/sAoV VTI28.6cm AO Peak GR.8.2mmHgLVOT Peak Tae.84.9cm/s AO Mean GR.4mmHgAVA (VMAX)2.14cm2 Mitral Valve MV E Iahgncbl64.2cm/sMV DECEL [id number] MV A Rxwwogcz61.7cm/sE/A Ratio0.9 MV A Fecbosva790fr Pulmonary Valve PV Peak Jtzbnosn01.8cm/s Tricuspid Valve TR P. Bhiinsle439lk/sTR Peak Gr.24mmHg Pulmonary Vein S1 Llprxdxv80.1cm/sD2 Hiukvlkf00.6cm/s PVa jhauqrxp313oaof LEFT VENTRICLE The left ventricle is normal size. There is normal left ventricular wall thickness. The left ventricu lar systolic function is low normal. The ejection fraction is estimated to be 50%. There is normal L V segmental wall motion. RIGHT VENTRICLE The right ventricle is normal size. There is normal right ventricular wall thickness. The right ventr icular systolic function is normal. ATRIA The left atrium size is normal. The right atrium size is normal. The interatrial septum is intact wit h no evidence for an atrial septal defect or patent foramen ovale as noted on 2-D or Doppler imaging. AORTIC VALVE The aortic valve is normal in structure and function. Doppler and Color Flow revealed no significant aortic regurgitation. There is no significant aortic valvular stenosis. MITRAL VALVE The mitral valve is normal in structure and function. There is no evidence of mitral valve prolapse. Doppler and Color Flow revealed no mitral valve regurgitation noted. TRICUSPID VALVE The tricuspid valve is normal in structure and function. Doppler and Color Flow revealed trace tricus pid regurgitation. Estimated PAP 27 mmHg. PULMONIC VALVE The pulmonary valve is normal in structure and function. Doppler and Color Flow revealed no pulmonic valvular regurgitation. GREAT VESSELS The aortic root is normal in size. The ascending aorta is normal in size. The IVC is normal in size a nd collapses >50% with inspiration. PERICARDIAL EFFUSION There is no evidence of significant pericardial effusion. Critical Notification Critical Value: No <Conclusion> The left ventricle is normal size. The left ventricular systolic function is low normal. The ejection fraction is estimated to be 50%. There is normal left ventricular wall thickness. There is no significant aortic valvular stenosis. Doppler and Color Flow revealed no significant aortic regurgitation. Doppler and Color Flow revealed no mitral valve regurgitation noted. Doppler and Color Flow revealed trace tricuspid regurgitation. Estimated PAP 27 mmHg. Signed by : Justo Duff MD Electronically Approved : 02/12/2019 17:06:37
[2019-02-12] MEDS: ATORVASTATIN CALCIUM 40 MG TABLET. PO SCH (19:39)
[2019-02-12] MEDS: LORazepam 0.5 MG TABLET PO PRN (19:39)
[2019-02-12] MEDS: CYCLOBENZAPRINE 10 MG TABLET. PO PRN (19:39)
[2019-02-12] MEDS: traMADol 50 MG TABLET PO PRN (20:13)
[2019-02-12] MEDS ORDERED: PATCH REMOVAL. MC SCH (21:00)
[2019-02-13 02:40] VITALS: BP 92/54
[2019-02-13 07:00] VITALS: BP 100/71
[2019-02-13] MEDS: CLOPIDOGREL BISULFATE 75 MG TABLET PO SCH (07:52)
[2019-02-13] MEDS: PANTOPRAZOLE 40 MG TABLET.DR. PO SCH (07:52)
[2019-02-13] MEDS: ASPIRIN 325 MG TABLET PO SCH (07:52)
[2019-02-13] MEDS: LOSARTAN POTASSIUM 50 MG TABLET. PO SCH (07:53)
[2019-02-13] MEDS: CHOLECALCIFEROL (VITAMIN D3) 1,000 UNIT TABLET PO SCH (07:53)
[2019-02-13] MEDS: amLODIPine BESYLATE 10 MG TABLET PO SCH (07:53)
[2019-02-13 07:54] VITALS: BP 100/71
[2019-02-13] MEDS: traMADol 50 MG TABLET PO PRN (07:54)
[2019-02-13] MEDS: CARVEDILOL 12.5 MG TABLET. PO SCH (07:54)
[2019-02-13] MEDS: LIDOCAINE (700MG/PATCH) PATCH. TD SCH (07:55)
[2019-02-13] MEDS: IPRATRPIUM/ALBUTEROL 0.5/2.5MG 3 ML NEBU. NEB SCH ×2 (08:15→11:33)
[2019-02-13] MEDS: IV NORMAL SALINE 1000ML BAG 1,000 ML IV SCH (10:57)
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
--- NOTE | 2019-02-13 11:40 | NUR ---
Discharge Note: ANA GUERRERO Discharge instructions and discharge home medications reviewed with Patient and a copy given. All questions have been answered and understanding verbalized. The following instructions and handouts were given: CP, hernia, follow up with Dr. Craven and PCP Discontinued lines and drains: Peripheral IV intact. Patient discharged to Home or Self Care with Family Member via Wheelchair
[2019-02-14] MEDS ORDERED: SUCCINYLCHOLINE 200 MG/10 ML VIAL. ONE (12:57)
[2019-02-14] MEDS ORDERED: LIDOCAINE 2% PF 5 ML VIAL. ONE (12:57)
[2019-02-14] MEDS ORDERED: DEXAMETHASONE SOD PHOS 4 MG/ML VIAL ONE (12:57)
[2019-02-14] MEDS ORDERED: ONDANSETRON PF 4 MG/2 ML VIAL. ONE (12:57)
[2019-02-14] MEDS ORDERED: fentaNYL PF VIAL 100 MCG/2 ML VIAL ONE (12:57)
[2019-02-14] MEDS ORDERED: PROPOFOL 20 ML IV ONE (12:57)
== END 2019-02-13 11:40 | disposition home or self-care (01) | DRG 313 ==
LOC: ER 14:57 → 2 NORTH 17:31
PROVIDERS: ADMIT Family Medicine; ATTEND Family Medicine
DX: R07.9 Chest pain, unspecified (principal); E66.01 Morbid (severe) obesity due to excess calories; E78.5 Hyperlipidemia, unspecified; F17.210 Nicotine dependence, cigarettes, uncomplicated; I10 Essential (primary) hypertension; I25.10 Atherosclerotic heart disease of native coronary artery without angina pectoris; J44.9 Chronic obstructive pulmonary disease, unspecified; K21.9 Gastro-esophageal reflux disease without esophagitis; K57.90 Diverticulosis of intestine, part unspecified, without perforation or abscess without bleeding; S20.219A Contusion of unspecified front wall of thorax, initial encounter; M19.90 Unspecified osteoarthritis, unspecified site; G89.29 Other chronic pain; V43.52XA Car driver injured in collision with other type car in traffic accident, initial encounter; I25.2 Old myocardial infarction; Y92.410 Unspecified street and highway as the place of occurrence of the external cause; Z68.30 Body mass index [BMI] 30.0-30.9, adult; Z82.49 Family history of ischemic heart disease and other diseases of the circulatory system; Z86.74 Personal history of sudden cardiac arrest; Z95.1 Presence of aortocoronary bypass graft; Z95.5 Presence of coronary angioplasty implant and graft; Y93.89 Activity, other specified; Y99.8 Other external cause status; Z90.49 Acquired absence of other specified parts of digestive tract
CPT/HCPCS: 36415; 70450; 71045; 71275; 72125; 74177; 80053; 84484; 85025; 85610; 93005; 93306; 94640; 94760; 96360; J0330; J1100; J1885; J2001; J2405; J2704; J3010; J7030; J7620; Q9967; 99285-25; G0378

== ENCOUNTER 2019-03-16 08:37 | Outpatient (CLI) | payer OTHER ==
[~2019-03-16] VITALS: Ht 177.8 cm; Wt 95.3 kg
[~2019-03-16 08:37] MED LIST changes: +ASPI-630 PO; +SIMV20TA18 PO; -SIMV20TA3 PO
[2019-03-16 08:52] VITALS: BP 122/77
[2019-03-16] MEDS ORDERED: LIDOCAINE WITH 8.4% SOD BICARB 3 ML DISP.SYRIN. ONE (09:44)
[2019-03-16 10:00] VITALS: BP 121/75
--- NOTE | 2019-03-16 10:00 | NUR ---
Patient to IR from outpatient, fine needle aspiration from upper midline abdomen with lidocain, no sedation. Sample sent to lab. Patient tolerated well with no issues or concerns, vitals stable. Patient to followup with Dr. Gibbons for results of lab.
[2019-03-16] MEDS ORDERED: LIDOCAINE WITH 8.4% SOD BICARB 3 ML DISP.SYRIN. IJ ONE (10:15)
--- NOTE | 2019-03-16 10:20 | NUR ---
Discharge Note: ANA GUERRERO Discharge instructions and discharge home medications reviewed with Patient and a copy given. All questions have been answered and understanding verbalized. The following instructions and handouts were given: Fine needle aspiration. Discontinued lines and drains: right hand, dressing clean dry intact. Patient discharged to home with via private vehicle.
--- NOTE | 2019-03-20 09:52 | RAD ---
Ultrasound-guided aspiration, epigastric subcutaneous fluid collection March 16, 2019 INDICATION: Small epigastric subcutaneous fluid collection. Discussion: The procedure was explained in its entirety to the patient or the patients designated specialty sales representative by a member of the treatment team, including a discussion of the risks, benefits and commonly accepted alternatives to the procedure, as well as the expected consequences of no therapy whatsoever. Discussion of the risks included, but was not limited to, those that are most frequent and those that are rare but possibly severe or life-threatening, as well as the possibility of unforeseen complications. All elements of maximal sterile barrier technique including the use of a cap, mask, sterile gown, sterile gloves, large sterile sheet, appropriate hand hygiene, and 2% chlorhexidine for cutaneous antisepsis (or acceptable alternative antiseptic per current guidelines) were followed for this procedure. Ultrasound evaluation demonstrates a small subcutaneous fluid collection in the in superior anterior abdominal wall. The overlying skin was prepped and draped using sterile barrier technique. The overlying skin was anesthetized with 1% lidocaine. Under direct ultrasound guidance a micropuncture needle was advanced in the collection. Small sheath was advanced into the collection. Approximately 15 cc of serosanguineous fluid was aspirated. Samples were sent for culture and Gram stain. Manual pressure was held. Sterile dressings were applied. Impression: Ultrasound-guided aspiration, anterior abdominal wall fluid collection
[2019-03-24] MEDS ORDERED: HYDR-2761 PO (12:46)
[2019-03-29] MEDS ORDERED: LOSA100T14 PO (21:01)
[2019-03-31] MEDS ORDERED: OXYC1TAB15 PO (09:02)
[2019-03-31] MEDS ORDERED: DOCU-153 PO (09:02)
== END 2019-03-16 10:20 | disposition home or self-care (01) ==
LOC: INTRAD 08:37
PROVIDERS: ATTEND Surgery
DX: R18.8 Other ascites (principal); I10 Essential (primary) hypertension; Z87.891 Personal history of nicotine dependence; Z79.01 Long term (current) use of anticoagulants
CPT/HCPCS: 10005; 87071; 87075; C1892

== ENCOUNTER → 2019-03-24 | Outpatient (CLI) | payer OTHER ==
[2019-03-16 10:00] VITALS: BP 121/75
[~2019-03-24] MED LIST changes: +DOCU-153 PO; +HYDR-2761 PO; +OXYC1TAB15 PO
[2019-03-24 13:02] LABS: BASO # 0.1 x10^3/uL (0.0-0.2); BASO % 1 % (0-3); EOS # 0.2 x10^3/uL (0.0-0.7); EOS % 4 % (0-3); HEMATOCRIT 41.3 % (39.0-53.0); HEMOGLOBIN 13.9 g/dL (13.0-17.5); LYMPH # 1.1 x10^3/uL (1.0-4.8); LYMPH % 23 % (24-48); MEAN CORPUSCULAR HEMOGLOBIN 31 pg (25-35); MEAN CORPUSCULAR HGB CONC 34 g/dL (31-37); MEAN CORPUSCULAR VOLUME 92 fL (79-100); MONO # 0.4 x10^3/uL (0.0-1.1); MONO % 9 % (0-9); NEUT % 64 % (31-73); PLATELET COUNT 226 x10^3/uL (140-400); RED BLOOD COUNT 4.47 x10^6/uL (4.30-5.70); WHITE BLOOD COUNT 4.7 x10^3/uL (4.0-11.0)
[2019-03-24 13:32] LABS: ALBUMIN 3.7 g/dL (3.4-5.0); CALCIUM 8.5 mg/dL (8.5-10.1); CREATININE 1.1 mg/dL (0.7-1.3); GFR 68.1; POTASSIUM 4.2 mmol/L (3.5-5.1)
== END | disposition home or self-care (01) ==
LOC: SURGPAT 11:57
PROVIDERS: ATTEND Surgery
DX: Z01.818 Encounter for other preprocedural examination (principal)
CPT/HCPCS: 36415; 80048; 82040; 85025

== ENCOUNTER → 2020-07-09 | Outpatient (CLI) | payer OTHER ==
[2019-03-31 15:00] VITALS: BP 99/62
[~2020-07-09] MED LIST changes: +AMLO-187 PO; -AMLO10TA8 PO; -ISOS20TA2 PO; +ISOS20TA6 PO
--- NOTE | 2020-07-09 13:01 | CARD ---
MR#: [id number] Date of Study: 07/09/2020 Ordering Physician: CHRIS RECINOS, Referring Physician: CHRIS RECINOS, Tech: Jaye Villasenor GOLDEN APPROVED REPORT EXAM: Two-dimensional and M-mode echocardiogram with Doppler and color Doppler. Other Information Quality : Fair INDICATION Cardiac Disease: CAD Surgery/Intervention CABG: Date: 2018 RISK FACTORS Obesity 2D DIMENSIONS RVDd2.7 (2.9-3.5cm)Left Atrium(2D)4.3 (1.6-4.0cm) IVSd1.2 (0.7-1.1cm)Aortic Root(2D)3.1 (2.0-3.7cm) LVDd5.7 (3.9-5.9cm)LVOT Diameter2.3 (1.8-2.4cm) PWd1.1 (0.7-1.1cm)LVDs4.2 (2.5-4.0cm) FS (%) 26.3 %SV82.8 ml LVEF(%)50.9 (>50%) Aortic Valve AoV Peak Tae.145.0cm/sAoV VTI30.4cm AO Peak GR.8.4mmHgLVOT Peak Tae.103.2cm/s LVOT VTI 20.79cmAO Mean GR.4mmHg KELIN (VMAX)2.79pr1TZV (VTI)2.85cm2 Mitral Valve MV E Nbmeqwlo36.8cm/sMV DECEL [id number] MV A Wbdtgrom071.0cm/sMV QMV75jq E/A Ratio0.9MVA (PHT)3.71cm2 TDI E/Lateral E'8.4E/Medial E'14.0 Tricuspid Valve TR P. Kaznuqpm010af/sRAP EQDSBKIR3ugKv TR Peak Gr.27kcBbGHLH11ptMc Pulmonary Vein S1 Odpilioy83.8cm/sD2 Orqsyitv28.6cm/s LEFT VENTRICLE The left ventricle is normal size. There is mild concentric left ventricular hypertrophy. Left ventri betzaida systolic function is normal. The Ejection Fraction is 50-55%. Septal motion consistent with post- operative state. Transmitral Doppler flow pattern is Grade I-abnormal relaxation pattern. RIGHT VENTRICLE The right ventricle is normal size. The right ventricular systolic function is normal. ATRIA The left atrium is mildly dilated. The right atrium size is normal. The interatrial septum is intact with no evidence for an atrial septal defect or patent foramen ovale as noted on 2-D or Doppler imagi ng. AORTIC VALVE The aortic valve is calcified but opens well. Doppler and Color Flow revealed no significant aortic r egurgitation. There is no significant aortic valvular stenosis. MITRAL VALVE The mitral valve is calcified but opens well. Mitral annular calcification is mild. There is no evide nce of mitral valve prolapse. There is no mitral valve stenosis. Doppler and Color-flow revealed trac e mitral regurgitation. TRICUSPID VALVE The tricuspid valve is normal in structure and function. Doppler and Color Flow revealed trace tricus pid regurgitation. The PA pressure was estimated at 19 mmHg. There is no tricuspid valve stenosis. PULMONIC VALVE The pulmonic valve is not well visualized. Doppler and Color Flow revealed no pulmonic valvular regur gitation. There is no pulmonic valvular stenosis. GREAT VESSELS The aortic root is normal in size. The ascending aorta is not well seen. The IVC is normal in size an d collapses >50% with inspiration. PERICARDIAL EFFUSION There is no evidence of significant pericardial effusion. Critical Notification Critical Value: No <Conclusion> Left ventricle systolic function is normal. The Ejection Fraction is 50-55%. Septal motion consistent with post-operative state. Transmitral Doppler flow pattern is Grade I-abnormal relaxation pattern. Trace mitral regurgitation. Trace tricuspid regurgitation. The PA pressure was estimated at 19 mmHg. There is no evidence of significant pericardial effusion. Signed by : Dominic Blair, Electronically Approved : 07/09/2020 13:01:31
== END ==
LOC: ECHO 08:42
PROVIDERS: ATTEND Internal Medicine Cardiovascular Disease
DX: I08.0 Rheumatic disorders of both mitral and aortic valves (principal); I25.10 Atherosclerotic heart disease of native coronary artery without angina pectoris
CPT/HCPCS: 93306

== ENCOUNTER → 2020-07-26 | Outpatient (CLI) | payer OTHER ==
[2019-03-31 15:00] VITALS: BP 99/62
[2020-07-26 08:35] LABS: BASO # 0.1 x10^3/uL (0.0-0.2); BASO % 1 % (0-3); EOS # 0.2 x10^3/uL (0.0-0.7); EOS % 3 % (0-3); HEMATOCRIT 42.5 % (39.0-53.0); HEMOGLOBIN 13.9 g/dL (13.0-17.5); LYMPH # 1.1 x10^3/uL (1.0-4.8); LYMPH % 21 % (24-48); MEAN CORPUSCULAR HEMOGLOBIN 30 pg (25-35); MEAN CORPUSCULAR HGB CONC 33 g/dL (31-37); MEAN CORPUSCULAR VOLUME 93 fL (79-100); MONO # 0.5 x10^3/uL (0.0-1.1); MONO % 10 % (0-9); NEUT # 3.5 x10^3/uL (1.8-7.7); NEUT % 65 % (31-73); PLATELET COUNT 247 x10^3/uL (140-400); RED BLOOD COUNT 4.59 x10^6/uL (4.30-5.70); RED CELL DISTRIBUTION WIDTH 14.5 % (11.5-14.5); WHITE BLOOD COUNT 5.4 x10^3/uL (4.0-11.0)
[2020-07-26 08:47] LABS: ALBUMIN 3.7 g/dL (3.4-5.0); ALBUMIN/GLOBULIN RATIO 1.2 (1.0-1.7); CALCIUM 8.4 mg/dL (8.5-10.1); CREATININE 1.1 mg/dL (0.7-1.3); GFR 67.8; POTASSIUM 3.6 mmol/L (3.5-5.1); TOTAL BILIRUBIN 0.3 mg/dL (0.2-1.0); TOTAL PROTEIN 6.8 g/dL (6.4-8.2)
[2020-07-26 08:54] LABS: CHOLESTEROL/HDL RATIO 3.3
== END ==
LOC: LAB 08:00
PROVIDERS: ATTEND Internal Medicine Cardiovascular Disease
DX: I25.10 Atherosclerotic heart disease of native coronary artery without angina pectoris (principal)
CPT/HCPCS: 36415; 80053; 80061; 83721; 85025